=== PATIENT | female | born 1985 | race Caucasian/White ===

== ENCOUNTER 2019-03-05 00:59 | Emergency (ER) | payer OTHER, SELFPAY ==
--- NOTE | 2019-03-05 01:03 | ED_ITS ---
HPI - Chest Pain General Chief Complaint: Arrhythmia/Palpitations Stated Complaint: heart palpitations, pain left arm Time Seen by Provider: 03/05/19 01:03 Source: patient and family Mode of arrival: Ambulatory Limitations: no limitations History of Present Illness HPI narrative: 33-year-old female nonsmoker with history of palpitations presents with her daughter and a chief complaint of a sudden onset of palpitat ions and some discomfort in her left shoulder while watching a television show with her daughter earlier tonight. It was very brief in its presentation and she denies any actions which caused her symptoms to improve. She denies anything else such as dizziness, weakness or lightheadedness complaint: other Onset (ago): hour(s) Duration: now resolved Onset: during rest Severity: mild Quality: heaviness Pain radiation: none Relieving factors: nothing Exacerbating factors: nothing Treatments prior to arrival chest pain: none Related Data Allergies Allergy/AdvReac Type Severity Reaction Status Date / Time amoxicillin [AMOXICILLIN] Allergy Severe rash, Unverified 01/04/18 14:19 throat swelling Review of Systems Constitutional Constitutional: Denies chills, Denies fatigue, Denies fever(s), Denies frequent falls, Denies lethargy and Denies weakness Eyes Eyes: Denies change in vision, Denies eye discharge, Denies irritation and Denies loss of vision ENT Ears, Nose, Mouth, and Throat: Denies change in voice, Denies dizziness, Denies neck pain, Denies sore throat and Denies throat swelling Cardiovascular Cardiovascular: Reports chest pain, Denies irregular heart rhythm, Denies lightheadedness, Reports palpitations, Denies dyspnea, Denies dyspnea on exertion and Denies orthopnea Respiratory Respiratory: Denies cough, Denies dyspnea, Denies dyspnea on exertion and Denies wheezing Gastrointestinal Gastrointestinal: Denies abdominal pain, Denies change in bowel habits, Denies diarrhea, Denies nausea and Denies vomiting Genitourinary Genitourinary: Denies hematuria, Denies flank pain, Denies urinary incontinence and Denies urinary urgency Musculoskeletal Musculoskeletal: Denies back pain, Denies muscle weakness, Denies neck pain, Denies numbness and Denies tingling Integumentary/Breasts Skin/Breast: Denies pruritus, Denies erythema, Denies rash and Denies wounds Neurologic Neurologic: Denies behavioral changes, Denies confusion, Denies dizziness, Denies frequent falls, Denies loss of vision, Denies numbness, Denies tingling and Denies weakness Psychiatric Psychiatric: Denies anxiety, Denies behavioral changes, Denies confusion, Denies depression, Denies homicidal ideation and Denies suicidal ideation Endocrine Endocrine: Denies fatigue, Denies flushing and Reports palpitations Hematologic/Lymphatic Hematologic/Lymphatic: Denies easy bruising Allergic/Immunologic Allergic/Immunologic: Denies urticaria, Denies throat swelling and Denies wheezing Patient History Family History Father Age: 60 Hypertension Hyperlipidemia Mother Age: 57 Uterine cancer Sister Age: 32 Hyperlipidemia Social History Smoking Status: Never smoker Exam Narrative Exam Narrative: GENERAL: [33] year old patient appears stated age. Well- nourished, well-developed patient, in mild distress. HEAD: Atraumatic. Normocephalic. EYES: Pupils equal round and reactive. Extraocular motions intact. No scleral i cterus. No injection or drainage. ENT: Nose without bleeding, purulent drainage. Throat without erythema, tonsillar hypertrophy or exudate. Airway patent. NECK: Trachea midline. Non tender CARDIOVASCULAR: Regular rate and rhythm without murmurs, gallops, or rubs. RESPIRATORY: Clear to auscultation. Breath sounds equal bilaterally. No wheezes, rales, or rhonchi. GASTROINTESTINAL: Abdomen soft, non-tender, nondistended. EXTREMITIES: No edema or joint tenderness. BACK: Nontender without deformity or crepitance. No flank tenderness. NEURO: AOx3. SKIN: No rash or erythema of visible areas Initial Vital Signs Initial Vital Signs: Vital Signs Temperature 98.1 F 03/05/19 01:09 Pulse Rate 73 03/05/19 01:09 Respiratory Rate 16 03/05/19 01:09 Blood Pressure 141/86 H 03/05/19 01:09 Pulse Oximetry 100 03/05/19 01:09 Scores HEART Score Heart Score history: Slightly Suspicious Heart Score EKG: Normal Heart Score Age: < 45 years old Heart Score risk factors: No known risk factors Heart Score troponin: < or = to normal limit Heart Score Total: 0 Course Orders Ordered: ED Orders 03/05/19 EKG-12 Lead Stat 03/05/19 01:25 Basic Metabolic Panel Stat Complete Blood Count AUTO DIFF Stat Magnesium Stat Troponin & CK Cardiac Panel Stat Vital Signs Vital signs: Vital Signs - 8 hr 03/05/19 01:09 03/05/19 02:41 Temperature 98.1 F Pulse Rate 73 61 Respiratory Rate 16 15 Blood Pressure 141/86 H 103/72 Pulse Oximetry 100 98 MDM - Chest Pain Lab Data Result diagrams: 03/05/19 01:25 03/05/19 01:25 Labs: Lab Results 03/05/19 03/05/19 Range/Units 01:25 01:25 WBC 8.6 (4.5-11.0) X10^3/uL RBC 3.77 L (4.0-5.2) X10^6/uL Hgb 12.0 (12.0-16.0) g/dL Hct 34.5 L (36-46) % MCV 91.6 (80-100) fL MCH 31.7 (26-34) PG MCHC 34.7 (30-36) % RDW 13.9 (11.6-14.8) % Plt Count 303 (150-400) X10^3/uL Neut % (Auto) 47.8 L (50-75) % Lymph % (Auto) 36.8 (25-40) % [place] % (Auto) 9.5 (3-14) % Eos % (Auto) 5.3 H (2-4) % Baso % (Auto) 0.6 (0-2) % Neut # (Auto) 4100 (0010-0356) /uL Lymph # (Auto) 3200 (9450-0463) /uL [place] # (Auto) 800 (0-900) /uL Eos # (Auto) 500 H (0-450) /uL Baso # (Auto) 100 (0-100) /uL Sodium 138 (137-145) mmol/L Potassium 3.8 (3.4-5.1) mmol/L Chloride 103 (98-107) mmol/L Carbon Dioxide 28 (22-32) mmol/L BUN 16 (7-17) mg/dL Creatinine 0.80 (0.52-1.04) mg/dL Estimated GFR > 60.0 (>60) mL/min BUN/Creatinine Ratio 20.0 (6-22) Glucose 99 (70-100) mg/dL Calcium 9.3 (8.4-10.2) mg/dL Magnesium 2.0 (1.6-2.3) mg/dL Total Creatine Kinase 56 (30-135) U/L CK-MB (CK-2) TNP CK-MB (CK-2) Rel Index TNP Troponin I < 0.012 (0.01-0.034) ng/mL MDM Narrative Medical decision making narrative: Multiple causes of chest pain considered including MD, PE, pneumothorax, pneumonia, aortic dissection, and pleurisy. Patient reports no radiation, no diaphoresis, no provocation with exertion, and no vomiting Patient's symptoms improved or duration of stay with above-stated therapies. Findings and discharge diagnosis discussed with patient/family followed by verbalization of understanding Return precautions discussed with patient/family whom verbalize understanding. Discharge Plan Departure Patient Disposition: Home Clinical Impression: Heart palpitations Discharge Date/Time: 03/05/19 02:43 Instructions: DI for Palpitations
[2019-03-05 01:09] VITALS: BP 141/86; PULSE 73; RESP 16; TEMP 36.7; O2SAT 100; BMI 24.7
[2019-03-05 01:32] LABS: Add Manual Diff / Slide Review NO; Basophils Absolute Auto 100 /uL (0-100); Basophils Percent Auto 0.6 % (0-2); Eosinophils Absolute Auto 500 /uL (0-450); Eosinophils Percent Auto 5.3 % (2-4); Hematocrit 34.5 % (36-46); Lymphocytes Absolute Auto 3200 /uL (1100-4500); Lymphocytes Percent Auto 36.8 % (25-40); Mean Corpuscular HGB Conc 34.7 % (30-36); Mean Corpuscular Hemoglobin 31.7 PG (26-34); Mean Corpuscular Volume 91.6 fL (80-100); Monocytes Absolute Auto 800 /uL (0-900); Monocytes Percent Auto 9.5 % (3-14); Neutrophils Absolute Auto 4100 /uL (1500-7000); Neutrophils Percent Auto 47.8 % (50-75); Platelet Count 303 X10^3/uL (150-400); Red Blood Cell Count 3.77 X10^6/uL (4.0-5.2); Red Cell Distribution Width 13.9 % (11.6-14.8); White Blood Cell Count 8.6 X10^3/uL (4.5-11.0)
[2019-03-05 01:42] LABS: Blood Urea Nitrogen 16 mg/dL (7-17); Calcium 9.3 mg/dL (8.4-10.2); Carbon Dioxide 28 mmol/L (22-32); Chloride 103 mmol/L (98-107); Creatine Kinase 56 U/L (30-135); Estimated Glomerular Filt Rate > 60.0 mL/min (>60); Glucose 99 mg/dL (70-100); HEMOLYSIS < 15 (0-50); Potassium 3.8 mmol/L (3.4-5.1); Sodium 138 mmol/L (137-145)
[2019-03-05 01:53] LABS: Troponin I < 0.012 ng/mL (0.01-0.034)
[2019-03-05 02:41] VITALS: BP 103/72; PULSE 61; RESP 15; O2SAT 98
== END 2019-03-05 02:43 | disposition home or self-care (01) ==
LOC: ED 02:22
PROVIDERS: Emergency Provider Emergency Medicine; Family Provider Family Medicine
DX: R00.2 Palpitations (principal); M25.512 Pain in left shoulder
CPT/HCPCS: 36415; 80048; 82550; 83735; 84484; 85025; 93005; 99282; 99283

== ENCOUNTER → 2019-03-21 07:26 | Outpatient (CLI) | payer OTHER, SELFPAY | PROVIDERS: Family Provider Family Medicine; Visit Provider Nurse Practitioner | DX: R00.2 Palpitations (principal) | CPT/HCPCS: 0296T ==

== ENCOUNTER 2019-11-11 10:10 | Emergency (ER) | payer OTHER, SELFPAY ==
[2019-11-11 10:22] VITALS: BP 138/83; PULSE 67; RESP 18; TEMP 37.1; O2SAT 100; BMI 27.1
--- NOTE | 2019-11-11 11:26 | ED.DENTAL ---
HPI - Dental/Oral <Mau Phillip-Francis [facility] - Last Filed: 11/11/19 14:04> General Chief complaint: Dental/Oral Stated complaint: Abscessed tooth causing severe pain Time Seen by Provider: 11/11/19 11:08 Source: patient Mode of arrival: Family Vehicle Limitations: no limitations History of Present Illness HPI Narrative: This is a 33 year female, nonsmoker, who presents to ED with significant other with chief complain of left lower wisdom tooth pain which started 2 nights ago. Patient has started taking clindamycin 150 mg 4 times a day yesterday afternoon. She had taken ibuprofen 200 mg most of the time every 4 hours yesterday, used Orajel, [place] 1 tab 3 times and Tylenol 1 g twice over 24 hour period. Patient states she had left over [place] which she does not have any more. Patient reports difficulty with eating and drinking due to pain. Pain increases with opening her mouth and chewing. Patient denies fever, chills. She reports pain around left-sided cervical lymph nodes. Patient had spoke with her dentist and is waiting for tomorrow's appointment. Patient is here since pain is not well managed and worried if it gets worse tonight. Related Data Previous Rx's Medication Instructions Recorded hydrocodone-acetaminophen [[place]] 1 tab PO Q8H PRN #7 tab 11/11/19 Allergies Allergy/AdvReac Type Severity Reaction Status Date / Time amoxicillin [AMOXICILLIN] Allergy Severe rash, Unverified 03/15/19 11:04 throat swelling Influenza Virus Vaccines Allergy Severe diffuse Verified 03/27/19 10:23 skin rash, difficulty breathing. heavy metal Allergy Severe Diffuse Uncoded 03/27/19 10:24 rash, breathing difficulties Review of Systems <Mau SergoFrancis [facility] - Last Filed: 11/11/19 14:04> Review of Systems Narrative: General: Denies fever, chills, fatigue, malaise, sweats. HEENT: See HPI Respiratory: Denies dyspnea, cough, wheezing, hemoptysis, sputum. Cardiovascular: Denies chest pain, palpitations, orthopnea, edema. Gastrointestinal: Denies nausea, vomiting, abdominal pain, diarrhea, constipation, melena. : Denies dysuria, frequency, incontinence, hematuria, urinary retention. Musculoskeletal: Denies weakness, joint pain or bony pain. Skin: Denies rash, skin lesions, or other. Neurologic: Denies weakness, headache, numbness, change in speech, confusion, seizures, incoordination. Psychiatric: No concerning psychosocial issues. 12-point review of systems is negative except for those stated above. Patient History <ZOË Scherer - Last Filed: 11/11/19 14:04> Medical History Abnormal Pap smear of cervix (Inactive ~2006) Allergic rhinitis (Acute) Anemia (Chronic ~2012) Anxiety (Acute) Depression (Acute) Human papilloma virus (Inactive ~2006) Painful menstrual periods (Chronic) Palpitations (Acute) Rosacea (Chronic) Skin rash (Chronic) UTI (urinary tract infection) (Chronic ~2006) Weight gain, abnormal (Acute) Family History Father Age: 61 Hypertension Hyperlipidemia Mother Uterine cancer Cancer Diabetes mellitus Sister Age: 33 Hyperlipidemia Social History Smoking Status: Never smoker Smoking Status: Never smoker alcohol intake frequency: 0-2 drinks per day Substance Use Type: does not use Exam <ZOË Scherer - Last Filed: 11/11/19 14:04> Narrative Exam Narrative: General appearance: well developed, well nourished, in moderate distress in tears due to pain. Head: normocephalic, atraumatic, no scalp lesions, non-tender. ENT: Hearing grossly intact. Nose without bleeding, purulent discharge, septal hematoma or deviation. Facial sinuses nontender to palpate. Mucous membrane moist, no mucosal lesion. Throat without erythema, tonsillar hypertrophy or exudate. Uvula in midline, airway patent. Neck/Thyroid: neck supple, full range of motion, no visible masses or meningeal signs. No JVD, non-tender. Tender to palpate in left anterior cervical lymph nodes. Skin: no suspicious rashes, lesions over visible areas. Warm and dry and appropriate color for ethnicity. Heart: no clubbing, no cyanosis, no edema. S1 and S2 normal. RRR w/o murmurs, clicks, or bruits. Lungs: Breathing even and unlabored. No stridor. No accessory muscles used. Able to speak in full sentences. Chest: normal shape and expansion. Abdomen: non-obese, non-distended. Neurologic: alert and oriented. Cognitive exam, [employer] and PNS grossly intact on informal exam. Psych: good eye contact, tearful. Initial Vital Signs Initial Vital Signs: Vital Signs Temperature 98.7 F 11/11/19 10:22 Pulse Rate 67 11/11/19 10:22 Respiratory Rate 18 11/11/19 10:22 Blood Pressure 138/83 11/11/19 10:22 Pulse Oximetry 100 11/11/19 10:22 <Waylon Marquez MD - Last Filed: 11/12/19 07:47> Initial Vital Signs Initial Vital Signs: Vital Signs Temperature 98.7 F 11/11/19 10:22 Pulse Rate 67 11/11/19 10:22 Respiratory Rate 18 11/11/19 10:22 Blood Pressure 138/83 11/11/19 10:22 Pulse Oximetry 100 11/11/19 10:22 Scores <ZOË Scherer - Last Filed: 11/11/19 14:04> GCS [place] coma scale eye opening: Spontaneous Ama coma scale verbal response: Orientated Ama coma scale motor response: Obey commands Ama coma scale total score: 15 Course <ZOË Scherer - Last Filed: 11/11/19 14:04> Vital Signs Vital signs: Vital Signs - 8 hr 11/11/19 10:22 11/11/19 11:40 Temperature 98.7 F Pulse Rate 67 76 Respiratory Rate 18 16 Blood Pressure 138/83 Pulse Oximetry 100 100 <Waylon Marquez MD - Last Filed: 11/12/19 07:47> Vital Signs Vital signs: Vital Signs - 8 hr 11/11/19 10:22 11/11/19 11:40 Temperature 98.7 F Pulse Rate 67 76 Respiratory Rate 18 16 Blood Pressure 138/83 Pulse Oximetry 100 100 MDM - Dental/Oral <ZOË Scherer - Last Filed: 11/11/19 14:04> Differential Diagnosis Differential diagnosis: Likely toothache, dental abscess and other (Impacted wisdom to in left lower mouth) Medical Records Attestation: I reviewed the patient's medical records. Lab Data Attestation: I reviewed the patient's lab results. [facility] Narrative Medical decision making narrative: This is a 33 year female who presents to ED with left lower molar pain for last 2 days. Patient has an appointment with her dentist tomorrow and had started on antibiotic medication clindamycin 150 mg q.i.d. and has been taking occasional Tylenol, her old prescription [place], subtherapeutic dose of Motrin during last 24 hours. Patient does not have fever chills. No obvious signs of dental infection at this time except mildly tender to palpate in left anterior cervical lymph nodes. Patient discharged to home with [id number] Tylenol and Motrin. We reviewed appropriate dose and frequency for these medications for pain management. Patient provided with cool pack to use on affected site for pain. Small dose of [place] has been prescribed for only severe pain with narcotic pain medications and precautions. Return precautions were discussed with patient and patient verbalized understanding and in agreement with treatment plan. Discharge Plan Departure Patient Disposition: Home Clinical Impression: Dental infection Discharge Date/Time: 11/11/19 11:42 Instructions: DI for Dental Pain Activity Restrictions/Additional Instructions: You have been diagnosed with [dental pain possibly due to dental infection.]. What to do: *Take your medications as directed. Please take [id number] ibuprofen/Motrin 400-600 mg as needed every 8 hours as needed with food. Tylenol 650-1000 mg every 6 hours as needed for pain up to 4000 mg in 24 hour period. You can use [place] 1 tab up to 3 times a day as needed for severe pain. Please take precautions for narcotic medication, [place]. This medication can cause sleepy and drowsiness and constipation. Please do not drive, drink alcohol, or operate heavy equipments while your taking [place]. [place] has been transmitted to [email or web address] in [place]. Also you can use cool pack on affected site as needed. *Follow up with your dentist tomorrow as scheduled foreign further evaluation and treatment. Let them know you were seen in the ED and that we asked you to be seen in follow up. *Return to ED if you have any new, worsening, or concerning symptoms, such as [chest pain, breathing difficulty, unable to tolerate fluids, high fever, worsening pain or any acute concerns]. Prescriptions: New hydrocodone-acetaminophen [[place]] 5-325 mg tablet 1 tab PO Q8H PRN (Reason: pain) Qty: 7 RF: 0 Referrals: Charline Manjarrez ARNP [Primary Care Provider] -
[2019-11-11 11:40] VITALS: PULSE 76; RESP 16; O2SAT 100
== END 2019-11-11 11:42 | disposition home or self-care (01) ==
PROVIDERS: Emergency Provider Nurse Practitioner Family; Family Provider Family Medicine; PCP Nurse Practitioner
DX: K04.7 Periapical abscess without sinus (principal)
CPT/HCPCS: 99281

== ENCOUNTER 2020-03-06 08:24 | Emergency (ER) | payer OTHER, SELFPAY ==
[2020-03-06 08:25] VITALS: BP 134/65; PULSE 71; RESP 18; TEMP 36.3; O2SAT 100; BMI 26.5
[2020-03-06 08:29] VITALS: BP 134/69; PULSE 61; RESP 14; O2SAT 99
--- NOTE | 2020-03-06 08:32 | DI.RAD.S_ITS ---
PROCEDURE: XR CHEST 1V INDICATIONS: chest pain TECHNIQUE: One view of the chest was acquired. COMPARISON: None. FINDINGS: Surgical changes and devices: None. Lungs and pleura: Lungs are clear. No pleural effusions or pneumothorax. Mediastinum: Mediastinal contours appear normal. Heart size is normal. Bones and chest wall: No suspicious bony lesions. Overlying soft tissues appear unremarkable. IMPRESSION: No evidence acute pulmonary process. Dictated by: Tyson Hernandez M.D. on 03/06/2020 at 9:10 Approved by: Tyson Hernandez M.D. on 03/06/2020 at 9:10
[2020-03-06 08:48] LABS: Add Manual Diff / Slide Review NO; Basophils Absolute Auto 0 /uL (0-100); Basophils Percent Auto 0.5 % (0-2); Eosinophils Absolute Auto 300 /uL (0-450); Eosinophils Percent Auto 3.4 % (2-4); Hematocrit 37.2 % (36-46); Hemoglobin 12.7 g/dL (12.0-16.0); Lymphocytes Absolute Auto 2300 /uL (1100-4500); Lymphocytes Percent Auto 29.4 % (25-40); Mean Corpuscular Hemoglobin 31.5 PG (26-34); Mean Corpuscular Volume 92.6 fL (80-100); Monocytes Absolute Auto 800 /uL (0-900); Monocytes Percent Auto 9.5 % (3-14); Neutrophils Absolute Auto 4500 /uL (1500-7000); Neutrophils Percent Auto 57.2 % (50-75); Platelet Count 290 X10^3/uL (150-400); Red Blood Cell Count 4.01 X10^6/uL (4.0-5.2); Red Cell Distribution Width 13.1 % (11.6-14.8); White Blood Cell Count 7.9 X10^3/uL (4.5-11.0)
--- NOTE | 2020-03-06 08:50 | DI.US.S_ITS ---
PROCEDURE: US ABDOMEN COMPLETE INDICATIONS: PULSATING ABDOMINAL PAIN, CHANGING LOCATION TECHNIQUE: Real-time scanning was performed of the abdominal and retroperitoneal organs, with image documentation. COMPARISON: [facility], US, ABDOMEN COMPLETE, 06/11/2015, 18:38. FINDINGS: Liver: Liver is normal in size and homogeneous in echotexture. Gallbladder: There is no gallstone. No gallbladder wall thickening or pericholecystic fluid. No sonographic Bell sign. Biliary ducts: Intrahepatic bile ducts are non-dilated. Extrahepatic bile duct caliber measures 4 mm. Normal is 6-7 mm or less in diameter, or 10 mm or less post-cholecystectomy. Pancreas: Visualized portions of the pancreas are sonographically normal. Spleen: Spleen is normal in size and homogeneous in echotexture. Kidneys: Kidneys are normal in size and echotexture. Right kidney measures 11 cm long; left kidney measures 10.1 cm long. No hydronephrosis or nephrolithiasis. No solid masses. Aorta: Visualized aorta is normal in caliber at less than 3 cm. Iliacs: Proximal common iliac arteries are normal in caliber at less than 2.5 cm. IVC: Intrahepatic inferior vena cava is patent. Miscellaneous: No free abdominal fluid. IMPRESSION: 1. No gallstone. No sonographic evidence of acute cholecystitis. 2. No biliary ductal dilatation. 3. Rest of the exam is unremarkable. Dictated by: Quinton Chanel M.D. on 03/06/2020 at 8:33 Approved by: Quinton Chanel M.D. on 03/06/2020 at 8:34
--- NOTE | 2020-03-06 08:53 | ED_ITS ---
HPI - Chest Pain General Chief Complaint: Chest Pain Stated Complaint: CHEST PAIN AND STOMACH PAIN Time Seen by Provider: 03/06/20 08:36 Source: patient Mode of arrival: Ambulatory Limitations: no limitations History of Present Illness HPI narrative: This is a 34-year-old female who comes to the emergency department with complaint of fluttering and a pulsating feeling in her stomach which she noticed yesterday and has continued. When she is distracted she does not notice it as much. She also developed some pain in her upper chest today. Patient states no fevers, no cough cold or congestion type symptoms. She describes the abdominal symptoms more as a discomfort when asked if she has pain and hesitate to call it pain. Patient denies any headaches, no shortness of breath or wheezing. No nausea, no vomiting. She normally has constipation. She has not had any new changes to her bowel movements. She noted her your urine has been slightly more orange recently and she has increased her fluid intake. Past medical history includes cervical dysplasia, she is following with a specialist in [place]. She is not on any other medications or have any other medical issues. No prior surgeries other than cervical biopsies. She states she has had significant stress lately and is concerned about her follow-up regarding her cervical dysplasia. No allergies to medications. No tobacco, alcohol or illicit. She does take an extensive list of supplements including 60412 units of vitamin-D, multivitamin, zinc, a HCC, DIM, methyl aided folate, tumor, vitamin-C, probiotic, CO2 10 and a herbal supplement which she just started. Patient's family history includes her mother passing away in her 50s from uterine cancer and she becomes tearful when discussing this. She denies any cardiac, pulmonary, embolic her aneurysm history. She is accompanied by her daughter today. Related Data Previous Rx's Medication Instructions Recorded hydrocodone-acetaminophen [Lindsay] 1 tab PO Q8H PRN #7 tab 11/11/19 Allergies Allergy/AdvReac Type Severity Reaction Status Date / Time amoxicillin [AMOXICILLIN] Allergy Severe rash, Unverified 03/15/19 11:04 throat swelling Influenza Virus Vaccines Allergy Severe diffuse Verified 03/27/19 10:23 skin rash, difficulty breathing. heavy metal Allergy Severe Diffuse Uncoded 03/27/19 10:24 rash, breathing difficulties Review of Systems Review of Systems ROS Unobtainable: All systems reviewed & are unremarkable except as noted in HPI and below Patient History Medical History Abnormal Pap smear of cervix (Inactive ~2006) Allergic rhinitis (Acute) Anemia (Chronic ~2012) Anxiety (Acute) Depression (Acute) Human papilloma virus (Inactive ~2006) Painful menstrual periods (Chronic) Palpitations (Acute) Rosacea (Chronic) Skin rash (Chronic) UTI (urinary tract infection) (Chronic ~2006) Weight gain, abnormal (Acute) Family History Father Age: 61 Hypertension Hyperlipidemia Mother Uterine cancer Cancer Diabetes mellitus Sister Age: 33 Hyperlipidemia Social History Smoking Status: Never smoker Smoking Status: Never smoker alcohol intake frequency: 0-2 drinks per day Substance Use Type: does not use Exam Narrative Exam Narrative: GENERAL: Alert and oriented x three, well-nourished, well- appearing female in mild distress. Patient became tearful during HPI. HEENT: Head normocephalic, atraumatic, EOMI, pupils reactive, face symmetric, moist mucous membranes NECK: Supple, full range of motion CARDIOVASCULAR: Regular rate and rhythm without murmurs, rubs or gallops. RESPIRATORY: Breath sounds equal bilaterally, no wheezes rales or rhonchi. ABDOMEN: Soft, nontender. Normoactive bowel sounds all 4 quadrants. No guarding or rebound, rigidity, no mass, no bruits, no pulsatile mass. : No CVA tenderness EXTREMITIES: Normal range of motion, no clubbing or edema. Neurovascularly intact NEUROLOGICAL: Cranial nerves II through XII grossly intact. Moving all extremities SKIN: Warm, dry, no petechiae, no rashes or lesions. Initial Vital Signs Initial Vital Signs: Vital Signs Temperature 97.3 F L 03/06/20 08:25 Pulse Rate 71 03/06/20 08:25 Respiratory Rate 18 03/06/20 08:25 Blood Pressure 134/65 03/06/20 08:25 Pulse Oximetry 100 03/06/20 08:25 Scores HEART Score Heart Score history: Slightly Suspicious Heart Score EKG: Normal Heart Score Age: < 45 years old Heart Score risk factors: No known risk factors Heart Score troponin: < or = to normal limit Heart Score Total: 0 Course Orders Ordered: ED Orders 03/06/20 08:32 XR chest 1V Stat 03/06/20 08:35 EKG-12 Lead Stat 03/06/20 08:40 Complete Blood Count AUTO DIFF Stat Comprehensive Metabolic Panel Stat Lipase Stat Partial Thromboplastin Time Stat Prothrombin Time INR Stat Thyroid Stimulating Hormone Stat Troponin & CK Cardiac Panel Stat 03/06/20 08:50 US abdomen complete Stat Vital Signs Vital signs: Vital Signs - 8 hr 03/06/20 08:25 Temperature 97.3 F L Pulse Rate 71 Respiratory Rate 18 Blood Pressure 134/65 Pulse Oximetry 100 MDM - Chest Pain Lab Data Attestation: I reviewed the patient's lab results. Result diagrams: 03/06/20 08:40 03/06/20 08:40 Labs: Lab Results 03/06/20 03/06/20 03/06/20 Range/Units 08:40 08:40 08:40 WBC 7.9 (4.5-11.0) X10^3/uL RBC 4.01 (4.0-5.2) X10^6/uL Hgb 12.7 (12.0-16.0) g/dL Hct 37.2 (36-46) % MCV 92.6 (80-100) fL MCH 31.5 (26-34) PG MCHC 34.0 (30-36) % RDW 13.1 (11.6-14.8) % Plt Count 290 (150-400) X10^3/uL Neut % (Auto) 57.2 (50-75) % Lymph % (Auto) 29.4 (25-40) % Citrus % (Auto) 9.5 (3-14) % Eos % (Auto) 3.4 (2-4) % Baso % (Auto) 0.5 (0-2) % Neut # (Auto) 4500 (4535-2211) /uL Lymph # (Auto) 2300 (3796-1692) /uL Citrus # (Auto) 800 (0-900) /uL Eos # (Auto) 300 (0-450) /uL Baso # (Auto) 0 (0-100) /uL PT 11.1 (10.1-12.7) SECONDS INR 1.0 (0.9-1.3) APTT 29 (26.4-36.2) SECONDS Sodium 137 (137-145) mmol/L Potassium 4.0 (3.4-5.1) mmol/L Chloride 101 (98-107) mmol/L Carbon Dioxide 31 (22-32) mmol/L BUN 14 (7-17) mg/dL Creatinine 0.55 (0.52-1.04) mg/dL Estimated GFR > 60.0 (>60) mL/min BUN/Creatinine Ratio 25.5 H (6-22) Glucose 80 (70-100) mg/dL Calcium 9.3 (8.4-10.2) mg/dL Total Bilirubin 0.3 (0.2-1.3) mg/dL AST 29 (14-36) IU/L ALT 29 (<35) IU/L Alkaline Phosphatase 45 (38-126) U/L Total Creatine Kinase 49 (30-135) U/L CK-MB (CK-2) TNP CK-MB (CK-2) Rel Index TNP Troponin I < 0.012 (0.01-0.034) ng/mL Total Protein 7.6 (6.3-8.2) g/dL Albumin 4.7 (3.5-5.0) g/dL Globulin 2.9 (1.7-4.1) g/dL Albumin/Globulin Ratio 1.6 (1.0-2.8) Lipase 55 (23-300) U/L TSH (0.47-4.68) uIU/mL 03/06/20 Range/Units 08:40 WBC (4.5-11.0) X10^3/uL RBC (4.0-5.2) X10^6/uL Hgb (12.0-16.0) g/dL Hct (36-46) % MCV (80-100) fL MCH (26-34) PG MCHC (30-36) % RDW (11.6-14.8) % Plt Count (150-400) X10^3/uL Neut % (Auto) (50-75) % Lymph % (Auto) (25-40) % Citrus % (Auto) (3-14) % Eos % (Auto) (2-4) % Baso % (Auto) (0-2) % Neut # (Auto) (3541-8026) /uL Lymph # (Auto) (1476-4167) /uL Citrus # (Auto) (0-900) /uL Eos # (Auto) (0-450) /uL Baso # (Auto) (0-100) /uL PT (10.1-12.7) SECONDS INR (0.9-1.3) APTT (26.4-36.2) SECONDS Sodium (137-145) mmol/L Potassium (3.4-5.1) mmol/L Chloride (98-107) mmol/L Carbon Dioxide (22-32) mmol/L BUN (7-17) mg/dL Creatinine (0.52-1.04) mg/dL Estimated GFR (>60) mL/min BUN/Creatinine Ratio (6-22) Glucose (70-100) mg/dL Calcium (8.4-10.2) mg/dL Total Bilirubin (0.2-1.3) mg/dL AST (14-36) IU/L ALT (<35) IU/L Alkaline Phosphatase (38-126) U/L Total Creatine Kinase (30-135) U/L CK-MB (CK-2) CK-MB (CK-2) Rel Index Troponin I (0.01-0.034) ng/mL Total Protein (6.3-8.2) g/dL Albumin (3.5-5.0) g/dL Globulin (1.7-4.1) g/dL Albumin/Globulin Ratio (1.0-2.8) Lipase (23-300) U/L TSH 0.850 (0.47-4.68) uIU/mL Point of Care Testing Test Results Negative Urine Dip Bedside Urine Glucose Negative Bedside Urine Bilirubin - Negative Bedside Urine Ketone - Negative Urine Specific [place] 1.005 Bedside Urine Occult Blood - Negative Bedside Urine pH 7.5 Bedside Urine Protein - Negative Bedside Urine Urobilinogen - Negative Bedside Urine Nitrite - Negative Bedside Urine Leukocytes - Negative Esterase Imaging Data Chest x-ray: Radiologist's Impression: [address] [place] [id number] XRay Report Signed Patient: Tatyana Almeida LMR#: [id number] : 1985Acct:[id number] Age/Sex: 34 / FDate of Service: 03/06/20 Loc: ED Accession Number: [id number] Procedure: XR chest 1V Ordering Provider: Rosy Fernandez D.O. PROCEDURE: XR CHEST 1V INDICATIONS: chest pain TECHNIQUE: One view of the chest was acquired. COMPARISON: None. FINDINGS: Surgical changes and devices: None. Lungs and pleura: Lungs are clear. No pleural effusions or pneumothorax. Mediastinum: Mediastinal contours appear normal. Heart size is normal. Bones and chest wall: No suspicious bony lesions. Overlying soft tissues appear unremarkable. IMPRESSION: No evidence acute pulmonary process. Dictated by: Tyson Hernandez M.D. on 03/06/2020 at 9:10 Approved by: Tyson Hernandez M.D. on 03/06/2020 at 9:10 US - abdomen: Radiologist's Impression: [place] [id number] Ultrasound Report Signed Patient: Tatyana Almeida LMR#: [id number] : 1985Acct:[id number] Age/Sex: 34 / FDate of Service: 03/06/20 Loc: ED Accession Number: [id number] Procedure: US abdomen complete Ordering Provider: Rosy Fernandez D.O. PROCEDURE: US ABDOMEN COMPLETE INDICATIONS: PULSATING ABDOMINAL PAIN, CHANGING LOCATION TECHNIQUE: Real-time scanning was performed of the abdominal and retroperitoneal organs, with image documentation. COMPARISON: [facility], , ABDOMEN COMPLETE, 06/11/2015, 18:38. FINDINGS: Liver: Liver is normal in size and homogeneous in echotexture. Gallbladder: There is no gallstone. No gallbladder wall thickening or per icholecystic fluid. No sonographic Bell sign. Biliary ducts: Intrahepatic bile ducts are non-dilated. Extrahepatic bile duct caliber measures 4 mm. Normal is 6-7 mm or less in diameter, or 10 mm or less post-cholecystectomy. Pancreas: Visualized portions of the pancreas are sonographically normal. Spleen: Spleen is normal in size and homogeneous in echotexture. Kidneys: Kidneys are normal in size and echotexture. Right kidney measures 11 cm long; left kidney measures 10.1 cm long. No hydronephrosis or nephrolithiasis. No solid masses. Aorta: Visualized aorta is normal in caliber at less than 3 cm. Iliacs: Proximal common iliac arteries are normal in caliber at less than 2.5 cm. IVC: Intrahepatic inferior vena cava is patent. Miscellaneous: No free abdominal fluid. IMPRESSION: 1. No gallstone. No sonographic evidence of acute cholecystitis. 2. No biliary ductal dilatation. 3. Rest of the exam is unremarkable. Dictated by: Quinton Chanel M.D. on 03/06/2020 at 8:33 Approved by: Quinton Chanel M.D. on 03/06/2020 at 8:34 ECG Data Attestation: I personally reviewed and interpreted this ECG as follows: Prior ECG tracings: not available for review Interpretation: Sinus rhythm with a rate of 78, CT 153, QRS of 93 QTC of 416. No ST changes appreciated. MDM Narrative Medical decision making narrative: Discussed with patient's suspicion for car diac cause is low, her pulsatile sensation over her abdomen and by her description does sound similar to aortic pulsations and patient does not have a very large body habitus. Plan for labs, urine evaluation and ultrasound to evaluate for abdominal organs as well as aorta. Patient is also quite stressed about her cervical dysplasia although she has been following regularly and containing appropriate medical care, she does have a family history of uterine cancer with her mother which seems to be exacerbating her current fevers understandably. She is also on a significant number of supplements and we discussed that her vitamin D dosage should be decreased and I would recommend decreasing the total number of supplements at this time as she could be having some interactions which are not making her feel less well. Labs, US and CXR show no major changes. Discharge Plan Departure Patient Disposition: Home Clinical Impression: Abdominal pain Discharge Date/Time: 03/06/20 09:59 Instructions: DI for Abdominal Pain-Adult Activity Restrictions/Additional Instructions: Follow-up with your physician at your scheduled appointment next week. I would decrease your number of supplements, I would also recommend decreasing or stopping your Vitamin D, 10,000IU is too much. Your physician can check your vitamin D level if you are concerned you are not getting adequate amounts. Return to the emergency department if your having fevers, rapidly worsening abdominal pain, ripping or tearing sensation, passing out, new shortness of breath, persistent vomiting, black or bloody stools or other new or concerning symptoms Prescriptions: No Action hydrocodone-acetaminophen [Lindsay] 5-325 mg tablet 1 tab PO Q8H PRN (Reason: pain) Qty: 7 RF: 0 Referrals: Charline Manjarrez ARNP [Primary Care Provider] -
[2020-03-06 09:00] LABS: Prothrombin Time 11.1 SECONDS (10.1-12.7)
[2020-03-06 09:02] LABS: Alanine Aminotransferase 29 IU/L (<35); Albumin 4.7 g/dL (3.5-5.0); Albumin Globulin Ratio 1.6 (1.0-2.8); Alkaline Phosphatase 45 U/L (38-126); Aspartate Aminotransferase 29 IU/L (14-36); BUN Creatinine Ratio 25.5 (6-22); Bilirubin Total 0.3 mg/dL (0.2-1.3); Blood Urea Nitrogen 14 mg/dL (7-17); Calcium 9.3 mg/dL (8.4-10.2); Carbon Dioxide 31 mmol/L (22-32); Chloride 101 mmol/L (98-107); Creatine Kinase 49 U/L (30-135); Estimated Glomerular Filt Rate > 60.0 mL/min (>60); Globulin 2.9 g/dL (1.7-4.1); Glucose 80 mg/dL (70-100); HEMOLYSIS < 15 (0-50); Lipase 55 U/L (23-300); PTT Partial Thromboplastin Tim 29 SECONDS (26.4-36.2); Sodium 137 mmol/L (137-145); Total Protein 7.6 g/dL (6.3-8.2)
[2020-03-06 09:14] LABS: Troponin I < 0.012 ng/mL (0.01-0.034)
[2020-03-06 09:57] VITALS: BP 97/61; PULSE 72; RESP 16; O2SAT 98
== END 2020-03-06 09:59 | disposition home or self-care (01) ==
PROVIDERS: Emergency Provider Emergency Medicine; Family Provider Family Medicine; PCP Nurse Practitioner
DX: R10.9 Unspecified abdominal pain (principal); R07.9 Chest pain, unspecified
CPT/HCPCS: 36415; 71045; 76700; 80053; 81003; 81025; 82550; 83690; 84443; 84484; 85025; 85610; 85730; 93005; 99284

== ENCOUNTER 2020-10-05 22:02 | Emergency (ER) | payer OTHER, SELFPAY ==
[2020-10-05 22:08] VITALS: BP 112/81; PULSE 86; RESP 18; TEMP 37.2; O2SAT 99
--- NOTE | 2020-10-05 22:08 | DI.RAD.S_ITS ---
PROCEDURE: XR CHEST 1V INDICATIONS: SOB TECHNIQUE: One view of the chest was acquired. COMPARISON: [facility], CR, XR CHEST 1V, 03/06/2020, 8:48. FINDINGS: Surgical changes and devices: None. Lungs and pleura: No pleural effusions or pneumothorax. Mild patchy ground-glass opacity involving the left lung base suggestive of early pneumonia although technically nonspecific and could represent mild atelectasis/aspiration. Mediastinum: Mediastinal contours appear normal. Heart size is normal. Bones and chest wall: No suspicious bony lesions. Overlying soft tissues appear unremarkable. IMPRESSION: Possible early left pneumonia although technically nonspecific as above. If there is persistent clinical diagnostic uncertainty, continued surveillance with short interval radiographic followup after treatment is recommended. Findings concordant with preliminary study interpretation. Dictated by: French Block M.D. on 10/06/2020 at 8:28 Approved by: French Block M.D. on 10/06/2020 at 8:30
--- NOTE | 2020-10-05 22:23 | RT ---
Assessed pt at 221. Pt is here for SOB, chest pain. Pt is on RA, SpO2 96%, RR 18, BS clear t/o. Pt has hx of asthma but mostly exercise induced asthma when she was in high school. Pt has never smoked and doesn't use CPAP/BiPAP or O2 at home. Recommending O2 therapy as needed and will monitor pt.
[2020-10-05 22:34] LABS: COVID19 -Nasal RAPID POSITIVE (Negative)
--- NOTE | 2020-10-05 22:34 | ED.GENADULT ---
HPI - General Adult General Chief complaint: Shortness of Breath/Dyspnea Stated complaint: SOB/chest pain, covid Sx Time Seen by Provider: 10/05/20 22:07 Source: patient Mode of arrival: Ambulatory Limitations: no limitations History of Present Illness HPI narrative: Patient is a 34-year-old female who is here with her for evaluation of chest pain and shortness of breath and also symptoms that she thinks her consistent with COVID. She has had the symptoms for the past 10-12 days however today started getting some worsening shortness of breath and coughing. Also started with a headache. Patient's also had symptoms starting about the same time. Related Data Allergies Allergy/AdvReac Type Severity Reaction Status Date / Time amoxicillin [AMOXICILLIN] Allergy Severe rash, Unverified 05/13/20 11:22 throat swelling Influenza Virus Vaccines Allergy Severe diffuse Verified 05/13/20 11:22 skin rash, difficulty breathing. heavy metal Allergy Severe Diffuse Uncoded 05/13/20 11:22 rash, breathing difficulties Review of Systems Constitutional Constitutional: Reports headache(s) ENT Ears, Nose, Mouth, and Throat: Reports headache(s) Cardiovascular Cardiovascular: Reports chest pain and Reports dyspnea Respiratory Respiratory: Reports cough and Reports dyspnea Integumentary/Breasts Skin/Breast: Denies rash Neurologic Neurologic: Reports system reviewed and no additional complaints, except as documented and Reports headache(s) Hematologic/Lymphatic On Anticoagulants: No Allergic/Immunologic Allergic/Immunologic: Reports system reviewed and no additional complaints, except as documented Patient History Medical History Abnormal Pap smear of cervix (~2006) Allergic rhinitis Anemia (~2012) Anxiety Depression Human papilloma virus (~2006) Painful menstrual periods Palpitations Rosacea Skin rash UTI (urinary tract infection) (~2006) Weight gain, abnormal Family History Father Age: 62 Hypertension Hyperlipidemia Mother Uterine cancer Cancer Diabetes mellitus Sister Age: 34 Hyperlipidemia Social History Smoking Status: Never smoker Smoking Status: Never smoker alcohol intake frequency: 0-2 drinks per day Substance Use Type: does not use Exam Initial Vital Signs Initial Vital Signs: Vital Signs Temperature 99.0 F 10/05/20 22:08 Pulse Rate 86 10/05/20 22:08 Respiratory Rate 18 10/05/20 22:08 Blood Pressure 112/81 10/05/20 22:08 Pulse Oximetry 99 10/05/20 22:08 Const General: cooperative and comfortable Limitations: mental status not altered HENMT Head: normal to inspection and normocephalic Resp Effort & Inspection: normal respiratory effort Auscultation: clear to auscultation bilaterally Cardio Rate: regular rate Rhythm: regular rhythm GI Inspection: normal to inspection Skin Lesions: no lesions Rashes: no rashes Extrem General: normal to inspection and capillary refill normal Psych Appearance: grossly normal and well kempt Course Orders Ordered: ED Orders 10/05/20 22:07 Measure peak expiratory flow ONCE RT Consult Eval and Treat Now 10/05/20 22:08 XR chest 1V Stat EKG-12 Lead Stat 10/05/20 22:18 COVID19 -Nasal swab/Pre-Proc Stat Vital Signs Vital signs: Vital Signs - 8 hr 10/05/20 22:08 10/05/20 22:59 Temperature 99.0 F Pulse Rate 86 74 Respiratory Rate 18 18 Blood Pressure 112/81 103/64 Pulse Oximetry 99 99 Medical Decision Making Lab Data Lab results reviewed: Yes I reviewed the patient's lab results. Labs: Lab Results 10/05/20 Range/Units 22:18 SARS-CoV-2 (PCR) Positive H (Negative) Imaging Data Chest x-ray: Attestation: I personally reviewed and interpreted this imaging study as follows: My Impression: No acute findings ECG Data Attestation: I personally reviewed and interpreted this ECG as follows: Prior ECG tracings: not available for review Interpretation: Sinus rhythm Ventricular rate is 68 Normal axis Normal QRS Normal QTC No ST T wave changes MDM Narrative Medical decision making narrative: Patient's vital signs are unremarkable. She has a clear lung exam. She is afebrile. She is COVID positive which I suspect is the source of her symptoms. No indication for antibiotics. Low suspicion for bacterial pneumonia based on her clinical presentation. She was given current guidelines with regard to quarantine. She was given return precautions and follow-up instructions. She expressed understanding and agreement. Discharge Plan Departure Patient Disposition: Home Clinical Impression: COVID-19 Instructions: DI for COVID-19 (Suspected or Confirmed ) Activity Restrictions/Additional Instructions: You are to quarantine yourself for the next 10 days and until you have been symptom-free for 24 hours. The rest of your family needs to quarantine themselves as well. You can take Tylenol for any fevers. Return to the emergency department for any worsening breathing issues. Referrals: Charline Manjarrez ARNP [Primary Care Provider] -
[2020-10-05 22:59] VITALS: BP 103/64; PULSE 74; RESP 18; O2SAT 99
== END 2020-10-05 22:59 | disposition home or self-care (01) ==
PROVIDERS: Emergency Provider Emergency Medicine; Family Provider Family Medicine; PCP Nurse Practitioner
DX: U07.1 COVID-19 (principal); R06.02 Shortness of breath; R07.9 Chest pain, unspecified
CPT/HCPCS: 36415; 71045; 87635; 93005; 93010; 99283; 99284; C9803

== ENCOUNTER → 2020-11-25 09:59 | Outpatient (CLI) | payer OTHER, SELFPAY ==
--- NOTE | 2020-11-25 10:02 | DI.US.S_ITS ---
PROCEDURE: US PELVIC COMPLETE INDICATIONS: HEAVY IRREGULAR BLEEDING TECHNIQUE: Real-time scanning was performed of the pelvic organs, with image documentation. Additional endovaginal scanning was necessary due to incomplete visualization of the adnexal and endometrial structures by transabdominal scanning. COMPARISON: None. FINDINGS: Uterus: Uterus is normal in size at 4.8 x 5.9 x 9.6 cm. The endometrium measures 4.0 mm in combined thickness. Uterus is anteverted. Ovaries: Right ovary measures 2.5 x 2.0 x 2.4 cm and the left measures 3.4 x 2.4 x 1.7 cm. Other: No pathologic free abdominal or pelvic fluid. IMPRESSION: No lesion seen. Dictated by: Pilo Hopkins M.D. on 11/26/2020 at 15:14 Approved by: Pilo Hopkins M.D. on 11/26/2020 at 15:16
[2020-11-25 11:53] LABS: Add Manual Diff / Slide Review NO; Basophils Absolute Auto 100 /uL (0-100); Eosinophils Absolute Auto 200 /uL (0-450); Eosinophils Percent Auto 2.6 % (2-4); Hematocrit 39.4 % (36-46); Hemoglobin 13.1 g/dL (12.0-16.0); Lymphocytes Absolute Auto 2100 /uL (1100-4500); Lymphocytes Percent Auto 29.4 % (25-40); Mean Corpuscular HGB Conc 33.3 % (30-36); Mean Corpuscular Hemoglobin 30.5 PG (26-34); Mean Corpuscular Volume 91.7 fL (80-100); Monocytes Absolute Auto 600 /uL (0-900); Monocytes Percent Auto 9.1 % (3-14); Neutrophils Absolute Auto 4100 /uL (1500-7000); Neutrophils Percent Auto 57.9 % (50-75); Platelet Count 323 X10^3/uL (150-400); Red Cell Distribution Width 13.7 % (11.6-14.8)
[2020-11-25 12:09] LABS: Alanine Aminotransferase 16 IU/L (<35); Albumin 4.5 g/dL (3.5-5.0); Albumin Globulin Ratio 1.4 (1.0-2.8); Alkaline Phosphatase 40 U/L (38-126); Aspartate Aminotransferase 25 IU/L (14-36); BUN Creatinine Ratio 15.3 (6-22); Bilirubin Total 0.5 mg/dL (0.2-1.3); Blood Urea Nitrogen 9 mg/dL (7-17); Calcium 9.5 mg/dL (8.4-10.2); Carbon Dioxide 27 mmol/L (22-32); Chloride 101 mmol/L (98-107); Cholesterol 201 mg/dL (140-199); Estimated Glomerular Filt Rate > 60.0 mL/min (>60); Globulin 3.2 g/dL (1.7-4.1); Glucose 79 mg/dL (70-100); HDL Cholesterol 57 mg/dL (40-60); HEMOLYSIS < 15 (0-50); LDL Cholesterol Calculated 126 mg/dL (<100); Potassium 4.2 mmol/L (3.4-5.1); Sodium 137 mmol/L (137-145); Total Protein 7.7 g/dL (6.3-8.2); Triglycerides 89 mg/dL (35-150)
[2020-11-25 12:24] LABS: Free T3, Triiodothyronine Free 3.73 pg/mL (2.77-5.27); Free T4, Direct Thyroxine 1.13 ng/dL (0.78-2.19)
[2020-11-25 12:26] LABS: HCG Quantitative /Beta subunit < 2.4 mIU/mL
[2020-11-25 12:38] LABS: Thyroid Stimulating Hormone 0.997 uIU/mL (0.47-4.68)
== END ==
PROVIDERS: Family Provider Family Medicine; PCP Nurse Practitioner; Referring Provider Obstetrics & Gynecology; Visit Provider Obstetrics & Gynecology
DX: N92.6 Irregular menstruation, unspecified (principal); F41.9 Anxiety disorder, unspecified; N39.0 Urinary tract infection, site not specified; R00.2 Palpitations
CPT/HCPCS: 36415; 76830; 76856; 80053; 80061; 83036; 84439; 84443; 84481; 84702; 85025

== ENCOUNTER 2021-01-05 13:51 | Emergency (ER) | payer OTHER, MEDICAID, SELFPAY ==
[2021-01-05] VITALS (12 sets, daily range): BP systolic 108–124; BP diastolic 66–78; PULSE 60–84; RESP 14–18; TEMP 36.8; O2SAT 99–100; BMI 29.2
--- NOTE | 2021-01-05 15:05 | DI.RAD.S_ITS ---
PROCEDURE: XR CHEST 1V INDICATIONS: Flu like symptoms TECHNIQUE: One view of the chest was acquired. COMPARISON: [facility], CR, XR CHEST 1V, 10/05/2020, 22:21. FINDINGS: Surgical changes and devices: None. Lungs and pleura: Lungs are clear. No pleural effusions or pneumothorax. Mediastinum: Mediastinal contours appear normal. Heart size is normal. Bones and chest wall: No suspicious bony lesions. Overlying soft tissues appear unremarkable. IMPRESSION: No acute cardiopulmonary abnormality. Dictated by: Jamie Blunt M.D. on 01/05/2021 at 16:10 Approved by: Jamie Blunt M.D. on 01/05/2021 at 16:11
--- NOTE | 2021-01-05 16:00 | PC.NURSE ---
Attempted IV access on pt unsuccessfully, Philip DAMON agreeable to lab draw without IV, lab called and stated they attempted 3 times unsuccessfully. Pt states she has been a difficult stick in the past. Philip DAMON aware.
[2021-01-05 16:18] LABS: COVID19 -Nasal RAPID Negative (Negative)
--- NOTE | 2021-01-05 16:35 | ED.SOB ---
HPI - SOB/Dyspnea General Chief Complaint: Shortness of Breath/Dyspnea Stated Complaint: Chest Pain, SOB Time Seen by Provider: 01/05/21 14:11 Source: patient Mode of arrival: Ambulatory Limitations: no limitations Related Data Previous Rx's Medication Instructions Recorded albuterol sulfate 90 mcg/actuation 2 puff INHALATION Q6H PRN 3 Days g 01/05/21 aerosol inhaler Allergies Allergy/AdvReac Type Severity Reaction Status Date / Time amoxicillin [AMOXICILLIN] Allergy Severe rash, Verified 01/05/21 14:01 throat swelling Influenza Virus Vaccines Allergy Severe diffuse Verified 01/05/21 14:01 skin rash, difficulty breathing. heavy metal Allergy Severe Diffuse Uncoded 12/01/20 08:53 rash, breathing difficulties Patient History Medical History Abnormal Pap smear of cervix (~2006) Allergic rhinitis Anemia (~2012) Anxiety Depression Human papilloma virus (~2006) Hyperlipidemia LDL goal <100 Painful menstrual periods Palpitations Rosacea Skin rash UTI (urinary tract infection) (~2006) Weight gain, abnormal Family History Father Age: 62 Hypertension Hyperlipidemia Mother Uterine cancer Cancer Diabetes mellitus Sister Age: 34 Hyperlipidemia Social History Smoking Status: Never smoker Smoking Status: Never smoker alcohol intake frequency: 0-2 drinks per day Substance Use Type: does not use Exam Initial Vital Signs Initial Vital Signs: Vital Signs Temperature 98.3 F 01/05/21 13:56 Pulse Rate 66 01/05/21 13:56 Respiratory Rate 14 01/05/21 13:56 Blood Pressure 124/78 01/05/21 13:56 Pulse Oximetry 100 01/05/21 13:56 Course Orders Ordered: Discontinued Medications Albuterol (Albuterol Hfa Mdi 60 Puff/8 Gm Inhaler) 2 puff INH NOW ONE Stop: 01/05/21 17:19 Albuterol (Albuterol 2.5 Mg/3 Ml Neb (Adult)) 2.5 mg INH NOW ONE Stop: 01/05/21 17:46 Last Admin: 01/05/21 17:48 Dose: 2.5 mg Documented by: BROOKE Vital Signs Vital signs: Vital Signs - 8 hr 01/05/21 13:56 01/05/21 14:12 01/05/21 14:30 Temperature 98.3 F Pulse Rate 66 74 64 Respiratory Rate 14 Blood Pressure 124/78 Pulse Oximetry 100 100 100 01/05/21 15:00 01/05/21 15:11 Temperature Pulse Rate 61 67 Respiratory Rate Blood Pressure 113/66 Pulse Oximetry 100 100 MDM - SOB/Dyspnea Lab Data Result diagrams: 01/05/21 16:33 01/05/21 16:33 Labs: Lab Results 01/05/21 01/05/21 01/05/21 Range/Units 15:33 16:33 16:33 WBC 9.0 (4.5-11.0) X10^3/uL RBC 4.18 (4.0-5.2) X10^6/uL Hgb 13.0 (12.0-16.0) g/dL Hct 38.3 (36-46) % MCV 91.5 (80-100) fL MCH 31.1 (26-34) PG MCHC 33.9 (30-36) % RDW 13.6 (11.6-14.8) % Plt Count 318 (150-400) X10^3/uL Neut % (Auto) 62.1 (50-75) % Lymph % (Auto) 27.6 (25-40) % [place] % (Auto) 7.5 (3-14) % Eos % (Auto) 2.0 (2-4) % Baso % (Auto) 0.8 (0-2) % Neut # (Auto) 5600 (7351-4383) /uL Lymph # (Auto) 2500 (9743-6078) /uL [place] # (Auto) 700 (0-900) /uL Eos # (Auto) 200 (0-450) /uL Baso # (Auto) 100 (0-100) /uL Sodium 139 (137-145) mmol/L Potassium 4.1 (3.4-5.1) mmol/L Chloride 106 (98-107) mmol/L Carbon Dioxide 25 (22-32) mmol/L BUN 9 (7-17) mg/dL Creatinine 0.60 (0.52-1.04) mg/dL Estimated GFR > 60.0 (>60) mL/min BUN/Creatinine Ratio 15.0 (6-22) Glucose 92 (70-100) mg/dL Calcium 9.9 (8.4-10.2) mg/dL Magnesium 2.1 (1.6-2.3) mg/dL Total Bilirubin 0.2 (0.2-1.3) mg/dL AST 24 (14-36) IU/L ALT 16 (<35) IU/L Alkaline Phosphatase 43 (38-126) U/L Total Creatine Kinase 55 (30-135) U/L CK-MB (CK-2) TNP CK-MB (CK-2) Rel Index TNP Troponin I < 0.012 (0.01-0.034) ng/mL Total Protein 7.9 (6.3-8.2) g/dL Albumin 4.7 (3.5-5.0) g/dL Globulin 3.2 (1.7-4.1) g/dL Albumin/Globulin Ratio 1.5 (1.0-2.8) Lipase 45 (23-300) U/L SARS-CoV-2 (PCR) Negative (Negative) Imaging Data Chest x-ray: Radiologist's Impression: PROCEDURE:? XR CHEST 1V ? INDICATIONS:? Flu like symptoms ? TECHNIQUE:? One view of the chest was acquired.? ? COMPARISON:? [facility], CR, XR CHEST 1V, 10/05/2020, 22:21. ? FINDINGS:? ? Surgical changes and devices:? None.? ? Lungs and pleura:? Lungs are clear.? No pleural effusions or pneumothorax.? ? Mediastinum:? Mediastinal contours appear normal.? Heart size is normal.? ? Bones and chest wall:? No suspicious bony lesions.? Overlying soft tissues appear unremarkable.? ? IMPRESSION:? No acute cardiopulmonary abnormality. ? ? Dictated by: Jamie Blunt M.D. on 01/05/2021 at 16:10 ? ? Approved by: Jamie Blunt M.D. on 01/05/2021 at 16:11 ? Discharge Plan Departure Patient Disposition: Home Clinical Impression: Shortness of breath Instructions: DI for Asthma -- Adult Activity Restrictions/Additional Instructions: You were evaluated in the ED today for shortness of breath, chest pain, cough. Your EKG, chest x-ray, labs were all normal. It is common for people to have a reaction to elements such as black mold, which can cause respiratory symptoms. Your symptoms improved today with albuterol. You can continue to use the albuterol if you experience shortness of breath. Please limit your exposure to the offending organism. Follow-up with your PCP. Return to the ED if you experience increasing shortness of breath, chest pain, throat tightness, lip or tongue swelling. Prescriptions: New albuterol sulfate 90 mcg/actuation HFA aerosol inhaler 2 puff inhalation Q6H PRN (Reason: shortness of breath or wheezing) 3 Days RF: 0 Referrals: Charline Manjarrez ARNP [Primary Care Provider] -
[2021-01-05 16:47] LABS: Add Manual Diff / Slide Review NO; Basophils Absolute Auto 100 /uL (0-100); Basophils Percent Auto 0.8 % (0-2); Eosinophils Absolute Auto 200 /uL (0-450); Hematocrit 38.3 % (36-46); Lymphocytes Absolute Auto 2500 /uL (1100-4500); Lymphocytes Percent Auto 27.6 % (25-40); Mean Corpuscular HGB Conc 33.9 % (30-36); Mean Corpuscular Hemoglobin 31.1 PG (26-34); Mean Corpuscular Volume 91.5 fL (80-100); Monocytes Absolute Auto 700 /uL (0-900); Monocytes Percent Auto 7.5 % (3-14); Neutrophils Absolute Auto 5600 /uL (1500-7000); Neutrophils Percent Auto 62.1 % (50-75); Platelet Count 318 X10^3/uL (150-400); Red Blood Cell Count 4.18 X10^6/uL (4.0-5.2); Red Cell Distribution Width 13.6 % (11.6-14.8)
[2021-01-05 16:54] LABS: Alanine Aminotransferase 16 IU/L (<35); Albumin 4.7 g/dL (3.5-5.0); Albumin Globulin Ratio 1.5 (1.0-2.8); Alkaline Phosphatase 43 U/L (38-126); Aspartate Aminotransferase 24 IU/L (14-36); Bilirubin Total 0.2 mg/dL (0.2-1.3); Blood Urea Nitrogen 9 mg/dL (7-17); Calcium 9.9 mg/dL (8.4-10.2); Carbon Dioxide 25 mmol/L (22-32); Chloride 106 mmol/L (98-107); Creatine Kinase 55 U/L (30-135); Estimated Glomerular Filt Rate > 60.0 mL/min (>60); Globulin 3.2 g/dL (1.7-4.1); Glucose 92 mg/dL (70-100); HEMOLYSIS < 15 (0-50); Lipase 45 U/L (23-300); Magnesium 2.1 mg/dL (1.6-2.3); Potassium 4.1 mmol/L (3.4-5.1); Sodium 139 mmol/L (137-145); Total Protein 7.9 g/dL (6.3-8.2)
--- NOTE | 2021-01-05 16:58 | ED_ITS ---
HPI - SOB/Dyspnea <Rhona Palacios PA-C - Last Filed: 01/05/21 19:36> General Chief Complaint: Shortness of Breath/Dyspnea Stated Complaint: Chest Pain, SOB Time Seen by Provider: 01/05/21 14:11 Source: patient Mode of arrival: Ambulatory Limitations: no limitations History of Present Illness HPI Narrative: 35-year-old female with past medical history anemia, anxiety presents to the ED with 1 week of shortness of breath, cough, chest pain. Patient states she was exposed to some black mold 1 week ago, following which she developed tightness in her throat, shortness of breath, left-sided chest pain, cough. Patient states that her symptoms improved when she was no longer exposed to mold, was again exposed yesterday, with recurrence of her symptoms. Again, her symptoms abated with the exposure went away. In the ED patient denies throat tightness, chest pain, trouble breathing. Patient denies fever, chills, headache, nausea, vomiting, abdominal pain, lightheadedness, dizziness, syncope. Denies recent travel, exogenous hormone use, immobilization, prior history of DVT, hemoptysis, leg swelling. Related Data Allergies Allergy/AdvReac Type Severity Reaction Status Date / Time amoxicillin [AMOXICILLIN] Allergy Severe rash, Verified 01/05/21 14:01 throat swelling Influenza Virus Vaccines Allergy Severe diffuse Verified 01/05/21 14:01 skin rash, difficulty breathing. heavy metal Allergy Severe Diffuse Uncoded 12/01/20 08:53 rash, breathing difficulties Review of Systems <Rhona Palacios PA-C - Last Filed: 01/05/21 19:36> Constitutional Constitutional: Denies chills, Denies fatigue, Denies fever(s), Denies frequent falls, Denies lethargy and Denies weakness Eyes Eyes: Denies change in vision, Denies eye discharge, Denies irritation and Denies loss of vision ENT Ears, Nose, Mouth, and Throat: Denies change in voice, Denies dizziness, Denies neck pain, Denies sore throat and Denies throat swelling Cardiovascular Cardiovascular: Reports chest pain, Denies irregular heart rhythm, Denies lightheadedness, Denies palpitations, Reports dyspnea, Denies dyspnea on exertion and Denies orthopnea Respiratory Respiratory: Reports cough, Reports dyspnea, Denies dyspnea on exertion and Denies wheezing Gastrointestinal Gastrointestinal: Denies abdominal pain, Denies change in bowel habits, Denies diarrhea, Denies nausea and Denies vomiting Musculoskeletal Musculoskeletal: Denies neck pain and Denies numbness Integumentary/Breasts Skin/Breast: Denies pruritus, Denies erythema, Denies rash and Denies wounds Neurologic Neurologic: Denies behavioral changes, Denies confusion, Denies dizziness, Denies frequent falls, Denies loss of vision, Denies numbness and Denies weakness Psychiatric Psychiatric: Denies anxiety, Denies behavioral changes, Denies confusion, Denies depression, Denies homicidal ideation and Denies suicidal ideation Endocrine Endocrine: Denies fatigue, Denies flushing and Denies palpitations Hematologic/Lymphatic Hematologic/Lymphatic: Denies easy bruising Allergic/Immunologic Allergic/Immunologic: Denies urticaria, Denies throat swelling and Denies wheezing Patient History <Rhona Palacios PA-C - Last Filed: 01/05/21 19:36> Medical History Abnormal Pap smear of cervix (~2006) Allergic rhinitis Anemia (~2012) Anxiety Depression Human papilloma virus (~2006) Hyperlipidemia LDL goal <100 Painful menstrual periods Palpitations Rosacea Skin rash UTI (urinary tract infection) (~2006) Weight gain, abnormal Family History Father Age: 62 Hypertension Hyperlipidemia Mother Uterine cancer Cancer Diabetes mellitus Sister Age: 34 Hyperlipidemia Social History Smoking Status: Never smoker Smoking Status: Never smoker alcohol intake frequency: 0-2 drinks per day Substance Use Type: does not use Exam <Rhona Palacios PA-C - Last Filed: 01/05/21 19:36> Narrative Exam Narrative: Benign physical exam. No signs of angioedema. Patent airway. Initial Vital Signs Initial Vital Signs: Vital Signs Temperature 98.3 F 01/05/21 13:56 Pulse Rate 66 01/05/21 13:56 Respiratory Rate 14 01/05/21 13:56 Blood Pressure 124/78 01/05/21 13:56 Pulse Oximetry 100 01/05/21 13:56 Const General: cooperative HENMT Head: normocephalic and atraumatic Ears: external ears normal and TM's normal bilaterally Nose: external nose normal and No nasal discharge Face and sinus: sinuses nontender, face symmetric, no sinus tenderness and No dry mucous membranes Mouth: oral mucosae normal and moist mucous membranes Teeth and gingiva: dentition normal Throat: tonsils normal and uvula midline Eyes General: appearance normal, both eyes and all related structures Eyelids: eyelids normal Conjunctivae: conjunctivae normal Sclera: sclerae normal Pupils: PERRL EOM: EOM intact bilaterally Neck Neck: normal visual inspection, trachea midline, No lymphadenopathy, No midline deformity and No JVD Lymphatic: No lymphedema Chest Chest: normal inspection of the chest Resp Effort & Inspection: normal respiratory effort, able to speak in complete sentences, no respiratory distress and no use of accessory muscles Auscultation: clear to auscultation bilaterally, no rales, no rhonchi and no wheezes Cardio Rate: regular rate Rhythm: regular rhythm Heart Sounds: no click, no gallops, no murmurs and no rubs Pulses: normal peripheral pulses GI Inspection: non-distended Palpation: soft, no hepatosplenomegaly, No guarding, No pulsatile mass and No tender Auscultation: normal bowel sounds Back/Spine/Pelvis Back: No CVA tenderness Cervical Spine: cervical ROM normal and No pain with cervical ROM Thoracic/Lumbar Spine: thoracic and lumbar spine normal to inspection Skin General: no rashes or lesions noted, No jaundice and No petechiae Neuro General: patient alert, patient oriented x3, gait normal and no focal motor defi cits Speech: speech normal Extrem General: full ROM, no clubbing, cyanosis or edema, no pedal edema and no calf tenderness Psych Appearance: well kempt Mental Status: mental status grossly normal Attitude: cooperative Thought Content: normal and suicidality Judgment: judgment good <Hang Kelly MD - Last Filed: 01/11/21 10:58> Initial Vital Signs Initial Vital Signs: Vital Signs Temperature 98.3 F 01/05/21 13:56 Pulse Rate 66 01/05/21 13:56 Respiratory Rate 14 01/05/21 13:56 Blood Pressure 124/78 01/05/21 13:56 Pulse Oximetry 100 01/05/21 13:56 Scores <Rhona Palacios PA-C - Last Filed: 01/05/21 19:36> PERC Score Age greater than or equal to 50 years: No Heart rate greater than or equal to 100 bpm: No Room Air O2 Sat less than 95%: No Unilateral leg swelling: No Recent trauma or surgery: No Hemoptysis: No Prior PE or DVT: No Hormone Use: No Total PERC Score: 0 <Hang Kelly MD - Last Filed: 01/11/21 10:58> PERC Score Total PERC Score: 0 Course <Rhona Palacios PA-C - Last Filed: 01/05/21 19:36> Course Course Narrative: Labs within normal limit, chest x-ray normal, EKG normal. Patient not complaining of chest pain in the ED. patient still complains of shortness of breath. SpO2 high 90s on room air. Patient's symptoms improved with albuterol. Will discharge home with a prescription for albuterol, ED return precautions. Orders Ordered: Discontinued Medications Albuterol (Albuterol Hfa Mdi 60 Puff/8 Gm Inhaler) 2 puff INH NOW ONE Stop: 01/05/21 17:19 Albuterol (Albuterol 2.5 Mg/3 Ml Neb (Adult)) 2.5 mg INH NOW ONE Stop: 01/05/21 17:46 Last Admin: 01/05/21 17:48 Dose: 2.5 mg Documented by: BROOKE Vital Signs Vital signs: Vital Signs - 8 hr 01/05/21 13:56 01/05/21 14:12 01/05/21 14:30 Temperature 98.3 F Pulse Rate 66 74 64 Respiratory Rate 14 Blood Pressure 124/78 Pulse Oximetry 100 100 100 01/05/21 15:00 01/05/21 15:11 01/05/21 15:30 Temperature Pulse Rate 61 67 71 Respiratory Rate Blood Pressure 113/66 Pulse Oximetry 100 100 100 01/05/21 16:00 01/05/21 16:37 01/05/21 17:00 Temperature Pulse Rate 66 69 69 Respiratory Rate Blood Pressure Pulse Oximetry 100 100 99 01/05/21 17:30 01/05/21 17:49 01/05/21 18:00 Temperature Pulse Rate 61 60 84 Respiratory Rate 18 16 Blood Pressure 108/72 Pulse Oximetry 99 100 100 <Hang Kelly MD - Last Filed: 01/11/21 10:58> Orders Ordered: Discontinued Medications Albuterol (Albuterol Hfa Mdi 60 Puff/8 Gm Inhaler) 2 puff INH NOW ONE Stop: 01/05/21 17:19 Albuterol (Albuterol 2.5 Mg/3 Ml Neb (Adult)) 2.5 mg INH NOW ONE Stop: 01/05/21 17:46 Last Admin: 01/05/21 17:48 Dose: 2.5 mg Documented by: BROOKE Vital Signs Vital signs: Vital Signs - 8 hr 01/05/21 13:56 01/05/21 14:12 01/05/21 14:30 Temperature 98.3 F Pulse Rate 66 74 64 Respiratory Rate 14 Blood Pressure 124/78 Pulse Oximetry 100 100 100 01/05/21 15:00 01/05/21 15:11 01/05/21 15:30 Temperature Pulse Rate 61 67 71 Respiratory Rate Blood Pressure 113/66 Pulse Oximetry 100 100 100 01/05/21 16:00 01/05/21 16:37 01/05/21 17:00 Temperature Pulse Rate 66 69 69 Respiratory Rate Blood Pressure Pulse Oximetry 100 100 99 01/05/21 17:30 01/05/21 17:49 01/05/21 18:00 Temperature Pulse Rate 61 60 84 Respiratory Rate 18 16 Blood Pressure 108/72 Pulse Oximetry 99 100 100 MDM - SOB/Dyspnea <Rhona Palacios PA-C - Last Filed: 01/05/21 19:36> Medical Records Attestation: I reviewed the patient's medical records. Lab Data Lab results narrative: Labs WNL Result diagrams: 01/05/21 16:33 01/05/21 16:33 Labs: Lab Results 01/05/21 01/05/21 01/05/21 Range/Units 15:33 16:33 16:33 WBC 9.0 (4.5-11.0) X10^3/uL RBC 4.18 (4.0-5.2) X10^6/uL Hgb 13.0 (12.0-16.0) g/dL Hct 38.3 (36-46) % MCV 91.5 (80-100) fL MCH 31.1 (26-34) PG MCHC 33.9 (30-36) % RDW 13.6 (11.6-14.8) % Plt Count 318 (150-400) X10^3/uL Neut % (Auto) 62.1 (50-75) % Lymph % (Auto) 27.6 (25-40) % [place] % (Auto) 7.5 (3-14) % Eos % (Auto) 2.0 (2-4) % Baso % (Auto) 0.8 (0-2) % Neut # (Auto) 5600 (1928-4398) /uL Lymph # (Auto) 2500 (8314-4102) /uL [place] # (Auto) 700 (0-900) /uL Eos # (Auto) 200 (0-450) /uL Baso # (Auto) 100 (0-100) /uL Sodium 139 (137-145) mmol/L Potassium 4.1 (3.4-5.1) mmol/L Chloride 106 (98-107) mmol/L Carbon Dioxide 25 (22-32) mmol/L BUN 9 (7-17) mg/dL Creatinine 0.60 (0.52-1.04) mg/dL Estimated GFR > 60.0 (>60) mL/min BUN/Creatinine Ratio 15.0 (6-22) Glucose 92 (70-100) mg/dL Calcium 9.9 (8.4-10.2) mg/dL Magnesium 2.1 (1.6-2.3) mg/dL Total Bilirubin 0.2 (0.2-1.3) mg/dL AST 24 (14-36) IU/L ALT 16 (<35) IU/L Alkaline Phosphatase 43 (38-126) U/L Total Creatine Kinase 55 (30-135) U/L CK-MB (CK-2) TNP CK-MB (CK-2) Rel Index TNP Troponin I < 0.012 (0.01-0.034) ng/mL Total Protein 7.9 (6.3-8.2) g/dL Albumin 4.7 (3.5-5.0) g/dL Globulin 3.2 (1.7-4.1) g/dL Albumin/Globulin Ratio 1.5 (1.0-2.8) Lipase 45 (23-300) U/L SARS-CoV-2 (PCR) Negative (Negative) Imaging Data Chest x-ray: Radiologist's Impression: PROCEDURE:? XR CHEST 1V ? INDICATIONS:? Flu like symptoms ? TECHNIQUE:? One view of the chest was acquired.? ? COMPARISON:? [facility], CR, XR CHEST 1V, 10/05/2020, 22:21. ? FINDINGS:? ? Surgical changes and devices:? None.? ? Lungs and pleura:? Lungs are clear.? No pleural effusions or pneumothorax.? ? Mediastinum:? Mediastinal contours appear normal.? Heart size is normal.? ? Bones and chest wall:? No suspicious bony lesions.? Overlying soft tissues appear unremarkable.? ? IMPRESSION:? No acute cardiopulmonary abnormality. ? ? Dictated by: Jamie Blunt M.D. on 01/05/2021 at 16:10 ? ? Approved by: Jamie Blunt M.D. on 01/05/2021 at 16:11 ? ECG Data Interpretation: NSR, no ST-T changes, no axis deviation. MDM Narrative Medical decision making narrative: 35-year-old female with past medical history anemia, anxiety presents to the ED with 1 week of shortness of breath, cough, chest pain. Perc negative, unlikely PE. Concern for ACS versus anaphylactic reaction versus allergic reaction versus COVID 19 infection versus other viral syndrome. Will order chest x-ray, EKG, labs, troponin, COVID-19 test. Will reassess. <Hang Kelly MD - Last Filed: 01/11/21 10:58> Lab Data Labs: Lab Results 01/05/21 01/05/21 01/05/21 Range/Units 15:33 16:33 16:33 WBC 9.0 (4.5-11.0) X10^3/uL RBC 4.18 (4.0-5.2) X10^6/uL Hgb 13.0 (12.0-16.0) g/dL Hct 38.3 (36-46) % MCV 91.5 (80-100) fL MCH 31.1 (26-34) PG MCHC 33.9 (30-36) % RDW 13.6 (11.6-14.8) % Plt Count 318 (150-400) X10^3/uL Neut % (Auto) 62.1 (50-75) % Lymph % (Auto) 27.6 (25-40) % [place] % (Auto) 7.5 (3-14) % Eos % (Auto) 2.0 (2-4) % Baso % (Auto) 0.8 (0-2) % Neut # (Auto) 5600 (0293-4693) /uL Lymph # (Auto) 2500 (3917-1590) /uL [place] # (Auto) 700 (0-900) /uL Eos # (Auto) 200 (0-450) /uL Baso # (Auto) 100 (0-100) /uL Sodium 139 (137-145) mmol/L Potassium 4.1 (3.4-5.1) mmol/L Chloride 106 (98-107) mmol/L Carbon Dioxide 25 (22-32) mmol/L BUN 9 (7-17) mg/dL Creatinine 0.60 (0.52-1.04) mg/dL Estimated GFR > 60.0 (>60) mL/min BUN/Creatinine Ratio 15.0 (6-22) Glucose 92 (70-100) mg/dL Calcium 9.9 (8.4-10.2) mg/dL Magnesium 2.1 (1.6-2.3) mg/dL Total Bilirubin 0.2 (0.2-1.3) mg/dL AST 24 (14-36) IU/L ALT 16 (<35) IU/L Alkaline Phosphatase 43 (38-126) U/L Total Creatine Kinase 55 (30-135) U/L CK-MB (CK-2) TNP CK-MB (CK-2) Rel Index TNP Troponin I < 0.012 (0.01-0.034) ng/mL Total Protein 7.9 (6.3-8.2) g/dL Albumin 4.7 (3.5-5.0) g/dL Globulin 3.2 (1.7-4.1) g/dL Albumin/Globulin Ratio 1.5 (1.0-2.8) Lipase 45 (23-300) U/L SARS-CoV-2 (PCR) Negative (Negative) Discharge Plan Departure Patient Disposition: Home Clinical Impression: Shortness of breath Instructions: DI for Asthma -- Adult Activity Restrictions/Additional Instructions: You were evaluated in the ED today for shortness of breath, chest pain, cough. Your EKG, chest x-ray, labs were all normal. It is common for people to have a reaction to elements such as black mold, which can cause respiratory symptoms. Your symptoms improved today with albuterol. You can continue to use the albuterol if you experience shortness of breath. Please limit your exposure to the offending organism. Follow-up with your PCP. Return to the ED if you experience increasing shortness of breath, chest pain, throat tightness, lip or tongue swelling. Referrals: Charline Manjarrez ARNP [Primary Care Provider] - <Hang Kelly MD - Last Filed: 01/11/21 10:58> Cosign ED Attending Cosradhaature Attestation: I was immediately available in the department for consultation. This documentation has been reviewed and I agree with assessment and plan. Supervised by Hang Kelly MD
[2021-01-05 17:05] LABS: Troponin I < 0.012 ng/mL (0.01-0.034)
[2021-01-05] MEDS: ALBUTEROL 2.5 MG/3 ML NEB (ADULT) INH (17:48)
== END 2021-01-05 18:25 | disposition home or self-care (01) ==
PROVIDERS: Emergency Medicine; Emergency Provider Student in an Organized Health Care Education/Training Program; Family Provider Family Medicine; PCP Nurse Practitioner
DX: R06.02 Shortness of breath (principal); R05 Cough; R07.9 Chest pain, unspecified; Z20.822 Contact with and (suspected) exposure to COVID-19
CPT/HCPCS: 36415; 71045; 80053; 82550; 83690; 83735; 84484; 85025; 87635; 93005; 93010; 94640; 99284; C9803; A9270; J7613

== ENCOUNTER → 2021-07-23 10:45 | Outpatient (CLI) | payer OTHER, MEDICAID, SELFPAY ==
--- NOTE | 2021-07-23 | DI.US.S_ITS ---
PROCEDURE: US OB >= 14 WEEKS FETUS INDICATIONS: 20 WEEK ANATOMY SCAN OUTSIDE/PRIOR DATING DATA: Last menstrual period (LMP): 03/04/2021. LMP-based estimated date of delivery (RONNIE): 12/09/2021. First dating scan (date and location): 07/23/2021 at . Estimated date of delivery (RONNIE) from first dating scan: 12/01/2021. The calculations are made using the RONNIE of LMP 12/09/2021. TECHNIQUE: Real-time scanning was performed of the fetus, with image documentation and biometric measurements. COMPARISON: None. FINDINGS: General: A single living intrauterine gestation is present. Presentation: Cephalic. Placenta: Placental position is anterior without previa. Amniotic fluid index: 14.4 cm, normal range is 5-24 cm. Single deepest vertical pocket is 3.9 cm. heart rate: 144 beats per minute. Maternal cervical canal: 4.9 cm long. Normal lower limit is 2.5 cm. biometrics: Biparietal diameter: 21 weeks 3 days Head circumference: 21 weeks 2 days Abdominal circumference: 21 weeks 4 days Femur length: 21 weeks 0 day Clinically estimated gestational age by LMP: 20 weeks 1 day Composite gestational age from present scan: 21 weeks 2 days Estimated weight and percentile: 414 g. Anatomic survey: Neuro: Ventricles are non-dilated at less than 10 mm. Cisterna magna is normal at 3-11 mm. Cerebellum is normal in size and morphology. Nuchal skin fold: Normal at less than 6 mm between 14-21 weeks gestational age. Face: Nose and lips, facial profile are normal. Spine: No evidence for spina bifida. Heart: 4-chambered heart is present, with normal ventricular outflow tracts. Diaphragm: Diaphragm is intact. Stomach: Left-sided stomach is present. Kidneys: No hydronephrosis. Normal is less than 5 mm in 2nd trimester, less than 7 mm in 3rd trimester. Cord: 3-vessel cord has orthotopic insertion. Bladder: Normal in size. Extremities: All 4 extremities identified. IMPRESSION: 1. A single living intrauterine gestation with an estimated gestational age of 21 weeks 2 days based on the current ultrasound corresponding to ultrasound RONNIE 12/01/2021. 2. Normal anatomic survey. We strive to produce accurate, complete, and clear reports of imaging services. To assist us in improving patient care, this report was composed using standard report templates and voice recognition software. Therefore, it may contain abnormal punctuation, insertions and/or omissions. Occasional wrong-word or sound-alike substitutions may occur. Though we review the report and make efforts to correct it, we do recommend that the report be read carefully in proper context to recognize any text inaccuracies. Dictated by: Perze Noble M.D. on 07/23/2021 at 15:11 Approved by: Perez Noble M.D. on 07/23/2021 at 15:28
== END ==
PROVIDERS: Family Provider Family Medicine; PCP Nurse Practitioner; Referring Provider Midwife; Visit Provider Midwife
DX: Z36.89 Encounter for other specified antenatal screening (principal); Z3A.21 21 weeks gestation of pregnancy
CPT/HCPCS: 76811

== ENCOUNTER → 2022-03-12 14:46 | Outpatient (CLI) | payer OTHER, MEDICAID, SELFPAY ==
[2022-03-12 15:49] LABS: COVID19 -Nasal RAPID Negative (Negative)
== END ==
PROVIDERS: Family Provider Family Medicine; PCP Nurse Practitioner; Visit Provider Obstetrics & Gynecology
DX: Z01.812 Encounter for preprocedural laboratory examination (principal); Z20.822 Contact with and (suspected) exposure to COVID-19
CPT/HCPCS: 87635; C9803

== ENCOUNTER 2022-03-15 07:53 | Day surgery (SDC) | payer OTHER, MEDICAID, SELFPAY ==
[2022-03-10 14:50] VITALS: BMI 30.3
--- NOTE | 2022-03-15 | PATH_ITS ---
[facility] Accession Number: [id number] . 01 Material submitted: . PART A: ectocervix - ECTOCERVIX PART B: endocervix - ENDOCERVIX . 01 Clinical history: . A: ECTOCERVIX LONG SUTURE 1200 SHORT SUTURE 600 . 01 Diagnosis: A. Ectocervix, LEEP Biopsy: Invasive squamous cell carcinoma, moderately to poorly differentiated. Involves the 6 o'clock designated fragment and the fourth-described tissue fragment (additional unoriented fragments, inked orange per the gross description). Invasive tumor extends to the ectocervical margin and the black inked deep margin. Involvement of the endocervical margin cannot be entirely excluded. Invasive squamous cell carcinoma involves an entire electrocauterized tissue fragment designated grossly as orange-inked and part of the additional unoriented fragments. Please see comment. . B. Endocervix, LEEP Biopsy: Endocervical tissue. Negative for dysplasia or malignancy. [facility] 03/19/2022 1714 Local . 01 Comment: The largest contiguous horizontal measurement by tissue examination is 8 mm. The largest deep measurement is 4 mm. . As part of routine director quality systems, this case was also reviewed by Dr. Estes, who agrees with the interpretation. . Messages regarding results left with Rosario, in Dr. Steinberg's office, on 03-17-22 at 1:52 p.m. and on 03-19-22 at 3:24 p.m. . 01 Electronically signed: . Ashley Faye MD, Pathologist NPI- [id number] . 01 Gross description: . A. The specimen is received in formalin, labeled with the patient's name, , and ectocervix long suture 12 o'clock, short suture 6 o'clock, and consists of four fragments of cervix. The first has a long suture designating 12 o'clock per the requisition and measures 1.8 x 1.5 x 0.5 cm. The ectocervix is schwartz and finely granular with no endocervical margin identified. The margins are inked blue, and the specimen is serially sectioned. The second fragment has a short suture designating 6 o'clock per the requisition and measuring 1.2 x 0.8 x 0.5 cm. Minimal schwartz, finely granular ectocervix is identified. The margins are inked black, and the fragment is serially sectioned. The third fragment is unoriented and measures 1.3 x 1.1 x 0.4 cm with a small amount of schwartz, finely granular ectocervix identified. The margins are inked green, and the fragment is serially sectioned. The fourth fragment measures 0.8 x 0.5 x 0.2 cm with no ectocervix identified. The external surface is inked orange. The specimen is submitted entirely as follows: A1: Presumed 9 o'clock to 12 o'clock. A2: 12 o'clock to presumed 3 o'clock. A3: 6 o'clock fragment. A4: Additional unoriented fragments. B. The specimen is received in formalin, labeled with the patient's name, , and endocervix, and consists of an unoriented linear fragment of cervix measuring 1.3 x 0.9 x 0.6 cm with no cervical os, ectocervix, or endocervical margin identified. The fragment has a concave surface which is inked black and a convex surface which is inked blue. The specimen is serially sectioned and submitted entirely in cassettes B1 B2. ([id number]) /[facility] 03/17/2022 0341 Local . 01 Microscopic: . An immunohistochemistry panel is performed to further evaluate the cells of interest. The control stains show appropriate reactivity. . RESULTS: Block A3: P40: Positive in regions of interest. LYDIA: Positive in regions of interest. P16: Positive in regions of interest. . The above results support an interpretation of invasive squamous cell carcinoma. The control slides stained appropriately. . . . * This test was developed and its performance characteristics determined by [employer]. It has not been cleared or approved by the U.S. Food and Drug Administration. The FDA has determined that such clearance or approval is not necessary. This test is used for clinical purposes. It should not be regarded as investigational or for research. . 01 Pathologist provided ICD-10: R87.613, C53.9 . 01 CPT . 598324, 981577, G42151 Specimen Comment: A courtesy copy of this report has been sent to [phone] Performed at: 01 [facility] [address] [place] [address], [place], [place] [id number] MD Uri Onofre MD Phone: [phone]
[2022-03-15] MEDS: LACTATED RINGERS 1,000 ML 100 ML IV (08:10)
[2022-03-15 08:19] VITALS: BP 109/79; PULSE 84; RESP 16; TEMP 36.8; O2SAT 100; BMI 30.3
--- NOTE | 2022-03-15 08:49 | PM.HP.1 ---
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 Patient History Medical History (Updated 03/10/22 @ 14:51 by Belinda Sutton RN) Abnormal Pap smear of cervix (~2006) Allergic rhinitis Anemia (~2012) Anxiety COVID-19 virus infection (10/05/20) Depression Human papilloma virus (~2006) Hyperlipidemia LDL goal <100 Nevus Painful menstrual periods Palpitations Rosacea Skin rash UTI (urinary tract infection) (~2006) Weight gain, abnormal Family & Social History Family History Father Age: 63 Hypertension Hyperlipidemia Mother Uterine cancer Cancer Diabetes mellitus Sister Age: 35 Hyperlipidemia Social History: household members spouse,children Tobacco & Substance use: Smoking Status Never smoker alcohol intake current alcohol intake frequency 0-2 drinks per day Substance Use Type does not use Meds Home Medications and Allergies Home Medications Medication Instructions Recorded Confirmed Type ascorbate calcium (vitamin C) PO 11/02/21 02/23/22 History cholecalciferol (vitamin D3) PO 11/02/21 02/23/22 History ferrous sulfate [Iron (ferrous PO 11/02/21 02/23/22 History sulfate)] prenat.vits,shalonda,[id number] 1 tab PO DAILY 11/02/21 03/10/22 History Allergies Allergy/AdvReac Type Severity Reaction Status Date / Time amoxicillin [AMOXICILLIN] Allergy Severe rash, Verified 03/15/22 07:42 throat swelling Influenza Virus Vaccines Allergy Severe diffuse Verified 03/15/22 07:42 skin rash, difficulty breathing. heavy metal Allergy Severe Diffuse Uncoded 03/15/22 07:42 rash, breathing difficulties Exam Vital Signs (past 8 hours): - 03/15/22 08:19 Temperature 98.3 F Pulse Rate 84 Respiratory Rate 16 Blood Pressure 109/79 Pulse Oximetry 100 Oxygen Delivery Method Room Air Oxygen Delivery Method Room Air Narrative Exam Narrative: HEENT: No thyromegaly, no anterior cervical or supraclavicular lymphadenopathy. Lungs:Clear to auscultation bilaterally, no wheezes. Cardiovascular: Regular rate and rhythm, no murmurs, rubs, or gallops. Abdomen: No scars. No hepatosplenomegaly. No masses palpable. External genitalia: Normal Vagina: Normal Cervix: Normal Bimanual exam: 6 Week size anteverted uterus. Mobile. Extremities: No edema Assessment & Plan Assessment & Plan narrative: Assessment: 36-year-old 2 para 2 with at least high-grade dysplasia of the endocervix and high-grade dysplasia of the ectocervix Plan: LEEP cone biopsy of the cervix including the endocervical component The risks, benefits, and alternatives to the procedure were explained to the patient. The risks including bleeding and infection. She understands these risks and agrees to proceed. A full par Q was held and consent form was signed. COVID-19 COVID-19 status: Negative Result date/Date tested (Pos, Neg/Pending): 03/12/22 Time Spent With Patient Critical Care time: I spent a total of [] minutes of critical care time on this patient's care today; this time is exclusive of procedural time.
--- NOTE | 2022-03-15 08:51 | PM.PREOP ---
Pre-operative Note COVID-19 COVID-19 status: Negative Result date/Date tested (Pos, Neg/Pending): 03/12/22 Criteria for continued procedure: Non-surgical alternatives not available or appropriate per current SOC Interval Note History & Physical reviewed/Exam performed by Physician: Yes Changes to H&P: No H&P completed within 30 days and has changed as indicated here:: 03/15/22
--- NOTE | 2022-03-15 09:27 | SUR.OPER ---
Lithotomy on padded OR bed, head on pillow, arms secured on padded arm boards at <90 degrees abduction. Legs secured in padded yellow fins stirrups.
[2022-03-15] MEDS: POTASSIUM IODIDE/IODINE 473 ML SOLUTION TOP (09:32)
[2022-03-15] MEDS: FERRIC SUBSULFATE 8 GM SOLUTION 8 ML TOP (09:50)
[2022-03-15 10:06] VITALS: BP 105/72; PULSE 82; RESP 15; TEMP 36.6; O2SAT 99
--- NOTE | 2022-03-15 10:09 | PM.GYNOP.1 ---
Operative Date/Time/Diagnoses Date of procedure: 03/15/22 Time of procedure: 10:09 Pre-op diagnosis: At least high grade dysplasia of the ecto/endocervix Post-op diagnosis: same Procedure & Clinicians Procedure: Procedures Operation Date: 03/15/22 09:00 Actual Procedure Side Surgeon rox LEEP Cone Bx of Cervix Darlin Steinberg MD Indications: At least high-grade cervical dysplasia on colposcopic biopsies Surgeon: Darlin Steinberg Anesthesia Type: General (LMA) Operative Notes Findings: Lugol's light area around the 11 o'clock position and extending into the endocervical canal Closure Type: primary Specimen(s): other (Ecto/Endo cervical LEEP specimens) Estimated blood loss (mL): 150 Blood products transfused: none Procedure in detail: After informed consent was obtained, the patient was taken to the operating room where she was placed in the dorsal supine position. After adequate LMA general anesthesia was achieved, she was placed in the dorsal lithotomy position, and prepped and draped in the usual sterile fashion. A plastic coated bivalve speculum was placed into the vagina. A plastic coated single-tooth tenaculum was placed on the anterior lip of the cervix. The cervix was coated with Lugol solution. There were Lugol's light areas around the 11 o'clock position and extending into the endocervical canal. Using the 20 mm loop with settings at 80 cut and 60 cautery, the anterior lip of the cervix excised and tagged at the 12 o'clock position with a long suture. The posterior lip of the cervix was excised as well and a short suture placed at the 6 o'clock position. The 10 mm loop was then used to excise the endocervix. Ball cautery was used to attempt hemostasis. The bleeding slowed to an ooze. A whipstitch was done with 2-0 chromic circumferentially. The ball cautery was used in the endocervical canal. A small Gelfoam was coated with Monsel's solution and placed into the endocervical canal. Hemostasis was achieved. The single-tooth tenaculum was removed from the anterior lip of the cervix. The plastic coated bivalve speculum was removed from the vagina. Three sources of suction were used for the smoke. All personnel wore 3 M masks. Sponge, lap, and instrument counts were correct x2. The patient tolerated the procedure well, and was taken to PACU in stable condition. Complications: none Post-operative Condition: stable Disposition: PACU Plan for aftercare: Home after recovery
[2022-03-15 10:11] VITALS: BP 105/72; PULSE 87; RESP 16; O2SAT 99
[2022-03-15 10:21] VITALS: BP 102/68; PULSE 68; RESP 17; TEMP 36.3; O2SAT 99
[2022-03-15 10:26] VITALS: BP 114/74; PULSE 16; RESP 16; TEMP 36.3
--- NOTE | 2022-03-15 10:34 | SUR.PHASEI ---
last PACU assessment 1021 unable to change time
== END 2022-03-15 10:48 | disposition home or self-care (01) ==
PROVIDERS: Family Provider Family Medicine; PCP Nurse Practitioner; Referring Provider Obstetrics & Gynecology; Visit Provider Obstetrics & Gynecology
PROC: 0UBC7ZZ Excision of Cervix, Via Natural or Artificial Opening (ICD-10-PCS; CPT 57522; principal; 2022-03-15 09:00)
DX: C53.9 Malignant neoplasm of cervix uteri, unspecified (principal)
CPT/HCPCS: 57522; 81025; A9270; J1100; J1885; J2405; J2704; J3010

== ENCOUNTER 2022-04-30 07:23 | Emergency (ER) | payer OTHER, MEDICAID, SELFPAY ==
[2022-04-30 07:35] VITALS: BP 115/59; PULSE 77; RESP 18; TEMP 36.1; O2SAT 100; BMI 27.4
--- NOTE | 2022-04-30 07:51 | ED.FEMALEGU ---
HPI - Female Genitourinary General Chief complaint: Urogenital-Female Stated complaint: post op t-7 /bladder or UTI t-2 Time Seen by Provider: 04/30/22 07:29 Source: patient Mode of arrival: Ambulatory History of Present Illness HPI Narrative: Patient is a 36-year-old female history of total hysterectomy secondary to cervical cancer at [facility] 7 days ago presents with 2 days of dysuria and frequent urination. She says she just does not feel like she is emptying her bladder all the way. She has no back pain no nausea vomiting no fevers no chest pain palpitations dizziness lightheadedness or syncope. She reports that she is on Lovenox shots. She says immediately post operative she did receive 1 blood transfusion but since then she says she is been doing well. She 4 months and has a 4-month-old baby. Related Data Home Medications Medication Instructions Recorded Confirmed ascorbate calcium (vitamin C) PO 11/02/21 02/23/22 cholecalciferol (vitamin D3) PO 11/02/21 02/23/22 ferrous sulfate [Iron (ferrous PO 11/02/21 02/23/22 sulfate)] prenat.vits,shalonda,[id number] 1 tab PO DAILY 11/02/21 03/10/22 Previous Rx's Medication Instructions Recorded oxycodone 5 mg tablet 5 mg PO Q4H PRN pain #7 tabs 03/15/22 nitrofurantoin 100 mg PO Q12H 5 days #10 caps 04/30/22 monohydrate/macrocrystals 100 mg capsule (Macrobid) phenazopyridine 100 mg tablet 100 mg PO TID PRN pain 6 doses #6 04/30/22 (Pyridium) tabs Allergies Allergy/AdvReac Type Severity Reaction Status Date / Time amoxicillin [AMOXICILLIN] Allergy Severe rash, Verified 04/30/22 07:34 throat swelling Influenza Virus Vaccines Allergy Severe diffuse Verified 04/30/22 07:34 skin rash, difficulty breathing. heavy metal Allergy Severe Diffuse Uncoded 04/30/22 07:34 rash, breathing difficulties Patient History Medical History (Updated 04/30/22 @ 08:14 by Isha Reich DO) Abnormal Pap smear of cervix (~2006) Allergic rhinitis Anemia (~2012) Anxiety COVID-19 virus infection (10/05/20) Depression Human papilloma virus (~2006) Hyperlipidemia LDL goal <100 Nevus Painful menstrual periods Palpitations Rosacea Skin rash UTI (urinary tract infection) (~2006) Weight gain, abnormal Family History Father Age: 63 Hypertension Hyperlipidemia Mother Uterine cancer Cancer Diabetes mellitus Sister Age: 35 Hyperlipidemia alcohol intake frequency: 0-2 drinks per day Substance Use Type: does not use Exam Initial Vital Signs Initial Vital Signs: Vital Signs Temperature 97.0 F L 04/30/22 07:35 Pulse Rate 77 04/30/22 07:35 Respiratory Rate 18 04/30/22 07:35 Blood Pressure 115/59 L 04/30/22 07:35 Pulse Oximetry 100 04/30/22 07:35 Oxygen Delivery Method 04/30/22 07:35 GENERAL: Alert pleasant 36-year-old female HEENT: Head atraumatic,EOMI, pupils reactive, face symmetric, moist mucous membranes CARDIOVASCULAR: Regular rate and rhythm without murmurs, rubs or gallops. RESPIRATORY: Breath sounds equal bilaterally, no wheezes rales or rhonchi. ABDOMEN: Soft, nontender no guarding no rebound incision site clean and dry Steri-Strips in place : No CVA tenderness EXTREMITIES: Normal range of motion, no clubbing or edema. Neurovascularly intact NEUROLOGICAL: Alert and oriented x4.Normal gait and speech. SKIN: Warm, dry, no laceration, no petechiae, no rashes or lesions. Course Vital Signs Vital signs: Vital Signs - 8 hr 04/30/22 07:35 Temperature 97.0 F L Pulse Rate 77 Respiratory Rate 18 Blood Pressure 115/59 L Pulse Oximetry 100 Oxygen Delivery Method Room Air MDM - Female Genitourinary Lab Data Labs: Urine Dip Bedside Urine Glucose Negative Bedside Urine Bilirubin - Negative Bedside Urine Ketone - Negative Urine Specific Robinson 1.020 Bedside Urine Occult Blood - Negative Bedside Urine pH 6.0 Bedside Urine Protein - Negative Bedside Urine Urobilinogen - Negative Bedside Urine Nitrite - Negative Bedside Urine Leukocytes - Negative Esterase MDM Narrative Medical decision making narrative: Patient is a 36-year-old female presenting with dysuria and urinary frequency. She is not tachycardic hypotensive or febrile no signs of sepsis. She 7 days postop from hysterectomy. UA POC urinalysis is completely negative. Concern for possible urinary retention bladder scan does show 25 mL. Pretty consistent with UTI old do a course of Macrobid and Pyridium to see if her symptoms improve. She really does not have any other concerning symptoms. Not hypotensive tachycardic having pain to suggest or warrant blood work or CT scan. At this time I do not see any need for further workup. However if symptoms worsen she definitely will need more. Discharge Plan Departure Patient Disposition: Home Clinical Impression: UTI (urinary tract infection) Instructions: DI for Urinary Tract Infection (UTI) Activity Restrictions/Additional Instructions: *You have been diagnosed with probable bladder infection *What to do: At this time her urine actually looks okay. However with recent history will give you 5 days of antibiotics. However if your symptoms worsen or change in any way you need to return back to the emergency department for further evaluation *Continue to take medications as directed Macrobid 100 mg twice a day for 5 days--> [facility] Pyridium 100 mg 3 times a day if needed for painful urination *Follow up with your primary care provider in 2-3 days or call [phone] *Return to ER if you should have increasing pain fever dizziness lightheadedness abdominal pain nausea vomiting or any new, worsening or concerning symptoms Prescriptions: New nitrofurantoin monohyd/m-cryst [Macrobid] 100 mg capsule 100 mg PO Q12H 5 Days Qty: 10 0RF Rx Instructions: must administer with a meal/food phenazopyridine [Pyridium] 100 mg tablet 100 mg PO TID PRN (Reason: pain) Qty: 6 0RF No Action prenat.vits,shalonda,[id number] Tablet 1 tab PO DAILY ferrous sulfate [Iron (ferrous sulfate)] PO cholecalciferol (vitamin D3) PO ascorbate calcium (vitamin C) PO oxycodone 5 mg tablet 5 mg PO Q4H PRN (Reason: pain) Qty: 7 0RF Referrals: Charline Manjarrez ARNP [Primary Care Provider] - Stand Alone Forms: Patient Portal/API
== END 2022-04-30 08:25 | disposition home or self-care (01) ==
PROVIDERS: Emergency Provider Emergency Medicine; Family Provider Family Medicine; PCP Nurse Practitioner
DX: N39.0 Urinary tract infection, site not specified (principal)
CPT/HCPCS: 51798; 81003; 99282

== ENCOUNTER → 2022-07-19 14:51 | Outpatient (CLI) | payer OTHER, MEDICAID, SELFPAY | PROVIDERS: Family Provider Family Medicine; PCP Nurse Practitioner; Referring Provider Nurse Practitioner; Visit Provider Nurse Practitioner | DX: R00.2 Palpitations (principal) | CPT/HCPCS: 93242 ==

== ENCOUNTER → 2022-12-10 16:28 | Outpatient (CLI) | payer OTHER, MEDICAID, SELFPAY ==
[2022-12-13 11:28] LABS: Candida species Negative (Negative); Gardnerella vaginalis Negative (Negative); Trichomoas vaginalis Negative (Negative)
== END ==
PROVIDERS: Family Provider Family Medicine; PCP Nurse Practitioner; Visit Provider Obstetrics & Gynecology
DX: N89.8 Other specified noninflammatory disorders of vagina (principal)
CPT/HCPCS: 87480; 87510; 87660

== ENCOUNTER 2023-04-20 15:04 | Emergency (ER) | payer OTHER, MEDICAID, SELFPAY ==
[2023-04-20 15:06] VITALS: BP 121/71; PULSE 81; RESP 18; TEMP 36.8; O2SAT 100; BMI 31.2
--- NOTE | 2023-04-20 18:00 | PC.NURSE ---
Pt reports dark maulik in urine today. Brought it in for staff to see. Denies any pain/discomfort or urinary changes.
--- NOTE | 2023-04-20 18:50 | ED_ITS ---
HPI - Female Genitourinary <Rhona Palacios PA-C - Last Filed: 04/20/23 18:56> General Chief complaint: Urogenital-Female Stated complaint: tissue in urine, previou cancer pt. Time Seen by Provider: 04/20/23 17:27 Source: patient Mode of arrival: Ambulatory History of Present Illness HPI Narrative: 37-year-old female with past medical history cervical cancer, status post hysterectomy presents to the ED with a piece of tissue that she noticed in the toilet after she urinated this morning. Patient brings with her a small piece of dark red/brown tissue. Patient denies any discomfort with urination, fever, chills, abdominal pain, back pain, nausea, vomiting. Patient sees obgyn Dr. Steinberg. Related Data Home Medications Medication Instructions Recorded Confirmed ascorbate calcium (vitamin C) PO 11/02/21 03/10/23 cholecalciferol (vitamin D3) PO 11/02/21 03/10/23 ferrous sulfate [Iron (ferrous PO 11/02/21 03/10/23 sulfate)] prenat.vits,shalonda,[id number] 1 tab PO DAILY 11/02/21 03/10/23 lactobacillus combination no.9 4 PO 06/01/22 03/10/23 billion cell capsule (Adult 50 Plus Probiotic) Allergies Allergy/AdvReac Type Severity Reaction Status Date / Time amoxicillin [AMOXICILLIN] Allergy Severe rash, Verified 03/10/23 11:36 throat swelling Influenza Virus Vaccines Allergy Severe diffuse Verified 03/10/23 11:36 skin rash, difficulty breathing. heavy metal Allergy Severe Diffuse Uncoded 03/10/23 11:36 rash, breathing difficulties Review of Systems <Rhona Palacios PA-C - Last Filed: 04/20/23 18:56> Constitutional Constitutional: Denies chills, Denies fatigue, Denies fever(s), Denies frequent falls, Denies lethargy and Denies weakness Eyes Eyes: Denies change in vision, Denies eye discharge, Denies irritation and Denies loss of vision ENT Ears, Nose, Mouth, and Throat: Denies change in voice, Denies dizziness, Denies neck pain, Denies sore throat and Denies throat swelling Cardiovascular Cardiovascular: Denies chest pain, Denies irregular heart rhythm, Denies lightheadedness, Denies palpitations, Denies dyspnea, Denies dyspnea on exertion and Denies orthopnea Respiratory Respiratory: Denies cough, Denies dyspnea, Denies dyspnea on exertion and Denies wheezing Gastrointestinal Gastrointestinal: Denies abdominal pain, Denies change in bowel habits, Denies diarrhea, Denies nausea and Denies vomiting Genitourinary Comments: Tissue in urine Musculoskeletal Musculoskeletal: Denies neck pain and Denies numbness Integumentary/Breasts Skin/Breast: Denies pruritus, Denies erythema, Denies rash and Denies wounds Neurologic Neurologic: Denies behavioral changes, Denies confusion, Denies dizziness, Denies frequent falls, Denies loss of vision, Denies numbness and Denies weakness Psychiatric Psychiatric: Denies anxiety, Denies behavioral changes, Denies confusion, Denies depression, Denies homicidal ideation and Denies suicidal ideation Endocrine Endocrine: Denies fatigue, Denies flushing and Denies palpitations Hematologic/Lymphatic Hematologic/Lymphatic: Denies easy bruising Allergic/Immunologic Allergic/Immunologic: Denies urticaria, Denies throat swelling and Denies wheezing Patient History <Rhona Palacios PA-C - Last Filed: 04/20/23 18:56> Medical History COVID-19 virus infection (10/05/20) Nevus Hyperlipidemia LDL goal <100 Allergic rhinitis Depression Weight gain, abnormal Anxiety Palpitations Skin rash Rosacea Anemia (~2012) Painful menstrual periods Human papilloma virus (~2006) Abnormal Pap smear of cervix (~2006) UTI (urinary tract infection) (~2006) Surgical History Status post hysterectomy Family History Father Age: 64 Hypertension Hyperlipidemia Mother Uterine cancer Cancer Diabetes mellitus Sister Age: 36 Hyperlipidemia alcohol intake frequency: 0-2 drinks per day Substance Use Type: does not use Exam <Rhona Palacios PA-C - Last Filed: 04/20/23 18:56> Narrative Exam Narrative: Const General:?cooperative, healthy appearing and comfortable [facility] Head:?normal to inspection Ears:?hearing grossly normal bilaterally Nose:?external nose normal Face and sinus:?normal facial exam and sinuses nontender Mouth:?oral mucosae normal Throat:?posterior oropharynx normal Eyes General:?appearance normal, both eyes and all related structures Neck Neck:?normal visual inspection and no lymphadenopathy noted Resp Effort & Inspection:?normal respiratory effort Auscultation:?clear to auscultation bilaterally Cardio Rate:?regular rate Rhythm:?regular rhythm Neuro General:?patient alert, patient awake and patient oriented x3 Initial Vital Signs Initial Vital Signs: Vital Signs Temperature 98.3 F 04/20/23 15:06 Pulse Rate 81 04/20/23 15:06 Respiratory Rate 18 04/20/23 15:06 Blood Pressure 121/71 04/20/23 15:06 Pulse Oximetry 100 04/20/23 15:06 Oxygen Delivery Method Room Air 04/20/23 15:06 <Isha Reich DO - Last Filed: 04/25/23 07:43> Initial Vital Signs Initial Vital Signs: Vital Signs Temperature 98.3 F 04/20/23 15:06 Pulse Rate 81 04/20/23 15:06 Respiratory Rate 18 04/20/23 15:06 Blood Pressure 121/71 04/20/23 15:06 Pulse Oximetry 100 04/20/23 15:06 Oxygen Delivery Method Room Air 04/20/23 15:06 Course <Rhona Palacios PA-C - Last Filed: 04/20/23 18:56> Vital Signs Vital signs: Vital Signs - 8 hr 04/20/23 15:06 Temperature 98.3 F Pulse Rate 81 Respiratory Rate 18 Blood Pressure 121/71 Pulse Oximetry 100 Oxygen Delivery Method Room Air <Isha Reich DO - Last Filed: 04/25/23 07:43> Vital Signs Vital signs: Vital Signs - 8 hr 04/20/23 15:06 Temperature 98.3 F Pulse Rate 81 Respiratory Rate 18 Blood Pressure 121/71 Pulse Oximetry 100 Oxygen Delivery Method Room Air MDM - Female Genitourinary <UYEN Mcclure Last Filed: 04/20/23 18:56> Lab Data Labs: Urine Dip Bedside Urine Glucose Negative Bedside Urine Bilirubin - Negative Bedside Urine Ketone - Negative Urine Specific [place] 1.010 Bedside Urine Occult Blood - Negative Bedside Urine pH 6.0 Bedside Urine Protein - Negative Bedside Urine Urobilinogen - Negative Bedside Urine Nitrite - Negative Bedside Urine Leukocytes - Negative Esterase MDM Narrative Medical decision making narrative: 37-year-old female with past medical history cervical cancer, status post hysterectomy presents to the ED with a piece of tissue that she noticed in the toilet after she urinated this morning. Urine POC was negative with no signs of blood, infection, crystals. Discussed with patient that the tissue could be of vaginal or urethral origin. Recommend follow-up with Dr. Steinberg as soon as possible for further evaluation. ED return precautions discussed with patient. Patient verbalized understanding. Medical records reviewed: Yes <Isha Reich DO - Last Filed: 04/25/23 07:43> Lab Data Labs: Urine Dip Bedside Urine Glucose Negative Bedside Urine Bilirubin - Negative Bedside Urine Ketone - Negative Urine Specific [place] 1.010 Bedside Urine Occult Blood - Negative Bedside Urine pH 6.0 Bedside Urine Protein - Negative Bedside Urine Urobilinogen - Negative Bedside Urine Nitrite - Negative Bedside Urine Leukocytes - Negative Esterase Discharge Plan Departure Patient Disposition: Home Clinical Impression: Urine abnormality Activity Restrictions/Additional Instructions: You were evaluated in the ED today for a abnormal tissue found after urination in the toilet. The piece of tissue could be of vaginal or urethral origin, however your urine was normal. Your urine did not show any evidence of blood or infection or crystals. Please follow-up with Dr. Steinberg as soon as possible for further evaluation. Return to the ED if you have worsening symptoms, pain with urination, persistent vomiting, fever, chills. Prescriptions: No Action prenat.vits,shalonda,[id number] Tablet 1 tab PO DAILY ferrous sulfate [Iron (ferrous sulfate)] PO cholecalciferol (vitamin D3) PO ascorbate calcium (vitamin C) PO Adult 50 Plus Probiotic 4 billion cell capsule PO Referrals: Charline Manjarrez ARNP [Primary Care Provider] - Stand Alone Forms: Patient Portal/API ED Sign-out <Isha Reich DO - Last Filed: 04/25/23 07:43> Cosign ED Attending Cosradhaature Attestation: I was available for consultation.
== END 2023-04-20 18:21 | disposition home or self-care (01) ==
PROVIDERS: Emergency Provider Student in an Organized Health Care Education/Training Program; Family Provider Family Medicine; PCP Nurse Practitioner
DX: R82.90 Unspecified abnormal findings in urine (principal)
CPT/HCPCS: 81003; 99281; 99282

== ENCOUNTER → 2023-06-30 10:16 | Outpatient (CLI) | payer OTHER, MEDICAID, SELFPAY ==
[2023-07-01 14:45] LABS: Candida species Negative (Negative); Gardnerella vaginalis Negative (Negative); Trichomoas vaginalis Negative (Negative)
== END ==
PROVIDERS: Family Provider Family Medicine; PCP Nurse Practitioner; Visit Provider Obstetrics & Gynecology
DX: N89.8 Other specified noninflammatory disorders of vagina (principal)
CPT/HCPCS: 87480; 87510; 87660

== ENCOUNTER → 2023-07-19 09:01 | Outpatient (CLI) | payer OTHER, MEDICAID, SELFPAY ==
[2023-07-19 11:19] LABS: HEMOLYSIS < 15 (0-50); Iron 126 ug/dL (37-170)
[2023-07-19 11:31] LABS: Percent Iron Saturation 33 % (15-50); Total Iron Binding Capacity 387 ug/dL (265-497); Transferrin 322 mg/dL (206-381)
[2023-07-19 12:09] LABS: Vitamin B12 657 pg/mL (239-931)
== END ==
LOC: LAB 09:01
PROVIDERS: Family Provider Family Medicine; PCP Nurse Practitioner; Referring Provider Nurse Practitioner; Visit Provider Nurse Practitioner
DX: D50.9 Iron deficiency anemia, unspecified (principal)
CPT/HCPCS: 36415; 82607; 83540; 83550

== ENCOUNTER → 2023-07-25 16:43 | Outpatient (CLI) | payer OTHER, MEDICAID, SELFPAY ==
[2023-07-25 17:29] LABS: Appearance Urine UA CLEAR; Bilirubin Urine UA NEGATIVE (NEGATIVE); Color Urine UA YELLOW; Glucose Urine UA NEGATIVE (Negative); Ketones Urine UA NEGATIVE (NEGATIVE); Leukocyte Esterase Urine UA NEGATIVE (NEGATIVE); Nitrite Urine UA NEGATIVE (Negative); Occult Blood Urine UA NEGATIVE (Negative); Protein Urine UA NEGATIVE (Negative); Specific Gravity Urine UA <=1.005 (1.000-1.035); Urobilinogen Urine UA 0.2 E.U./dL (0.2); pH Urine UA 6.5 (4.5-8.0)
[2023-07-25 17:43] LABS: Bacteria Urine Occasional (0-1); Culture Indicated Urine Cult Not Indicated; RBC Urine 0-1/HPF (0-5/HPF); Squamous Epithelial Cell Urine 0-1 /HPF (0-5/HPF); Urine Volume 10mL (spun); WBC Urine 0-1/HPF (0-5/HPF)
[2023-07-25 17:58] LABS: Creatinine Urine Random 23.5 mg/dL
[2023-07-25 18:02] LABS: Microalbumin Urine Random < 0.6 mg/dL (0-1.6)
== END ==
PROVIDERS: Family Provider Family Medicine; PCP Nurse Practitioner; Referring Provider Nurse Practitioner; Visit Provider Nurse Practitioner
DX: Z00.00 Encounter for general adult medical examination without abnormal findings (principal); R31.9 Hematuria, unspecified
CPT/HCPCS: 36415; 81001; 82043; 82570

== ENCOUNTER → 2024-09-13 09:22 | Outpatient (CLI) | payer OTHER, SELFPAY ==
[2024-09-13 10:45] LABS: HEMOLYSIS < 15 (0-50); Hematocrit 38.2 % (36-46); Iron 70 ug/dL (37-170); Mean Corpuscular HGB Conc 34.2 % (30-36); Mean Corpuscular Hemoglobin 30.7 PG (26-34); Mean Corpuscular Volume 89.9 fL (80-100); Platelet Count 358 X10^3/uL (150-400); Red Blood Cell Count 4.25 X10^6/uL (4.0-5.2); Red Cell Distribution Width 13.7 % (11.6-14.8); White Blood Cell Count 9.2 X10^3/uL (4.5-11.0)
[2024-09-13 10:46] LABS: Alanine Aminotransferase 22 IU/L (<35); Albumin 4.6 g/dL (3.5-5.0); Albumin Globulin Ratio 1.8 (1.0-2.8); Alkaline Phosphatase 54 U/L (38-126); Aspartate Aminotransferase 26 IU/L (14-36); BUN Creatinine Ratio 19.4 (6-22); Bilirubin Total 0.3 mg/dL (0.2-1.3); Blood Urea Nitrogen 12 mg/dL (7-17); Calcium 9.3 mg/dL (8.4-10.2); Carbon Dioxide 25 mmol/L (22-32); Chloride 103 mmol/L (98-107); Cholesterol 193 mg/dL (140-199); Estimated Glomerular Filt Rate > 60 mL/min (>60); Globulin 2.6 g/dL (1.7-4.1); Glucose 90 mg/dL (70-99); HDL Cholesterol 48 mg/dL (40-60); HEMOLYSIS 18 (0-50); LDL Cholesterol Calculated 127 mg/dL (<100); Potassium 4.4 mmol/L (3.4-5.1); Sodium 137 mmol/L (137-145); Total Protein 7.2 g/dL (6.3-8.2); Triglycerides 88 mg/dL (35-150)
[2024-09-13 10:55] LABS: Percent Iron Saturation 18 % (15-50); Total Iron Binding Capacity 389 ug/dL (265-497); Transferrin 337 mg/dL (206-381)
[2024-09-13 11:00] LABS: Follicle Stimulating Hormone 6.02 mIU/mL; Vitamin D 25 Hydroxy (D3) 34.7 ng/mL (30.0-100.0)
[2024-09-13 11:01] LABS: Free T4, Direct Thyroxine 1.11 ng/dL (0.78-2.19)
[2024-09-13 11:07] LABS: Hemoglobin A1C% w Est Avg Glu 5.1 % (4.0-6.0)
[2024-09-13 11:15] LABS: Thyroid Stimulating Hormone 1.26 uIU/mL (0.47-4.68)
[2024-09-13 11:16] LABS: Estradiol, Total 67.5 pg/mL
[2024-09-13 11:18] LABS: Ferritin 22 ng/mL (6-137)
[2024-09-13 11:34] LABS: Vitamin B12 515 pg/mL (239-931)
== END ==
PROVIDERS: Family Provider Family Medicine; PCP Registered Nurse Diabetes Educator; Referring Provider Registered Nurse Diabetes Educator; Visit Provider Registered Nurse Diabetes Educator
DX: E78.5 Hyperlipidemia, unspecified (principal); D50.9 Iron deficiency anemia, unspecified; R00.2 Palpitations; R53.83 Other fatigue; R63.5 Abnormal weight gain; R68.82 Decreased libido; N89.8 Other specified noninflammatory disorders of vagina
CPT/HCPCS: 36415; 80053; 80061; 82306; 82607; 82670; 82728; 83001; 83036; 83540; 83550; 84439; 84443; 85027

== ENCOUNTER 2024-09-16 22:17 | Emergency (ER) | payer OTHER, SELFPAY ==
[2024-09-16 22:21] VITALS: BP 142/66; PULSE 62; RESP 20; TEMP 36.4; O2SAT 100; BMI 32.9
--- NOTE | 2024-09-17 | DI.RAD.S_ITS ---
PROCEDURE: XR CHEST 1V INDICATIONS: Chest Pain TECHNIQUE: One view of the chest was acquired. COMPARISON: [facility], CR, XR CHEST 1V, 01/05/2021, 15:19. [facility], CR, XR CHEST 1V, 10/05/2020, 22:21. FINDINGS: Surgical changes and devices: None. Lungs and pleura: Lungs are clear. No pleural effusions or pneumothorax. Mediastinum: Mediastinal contours appear normal. Heart size is normal. Bones and chest wall: No suspicious bony lesions. Overlying soft tissues appear unremarkable. IMPRESSION: No acute cardiopulmonary abnormality is seen. Dictated by: Jimi Armendariz M.D. on 09/17/2024 at 0:36 Approved by: Jimi Armendariz M.D. on 09/17/2024 at 0:37
--- NOTE | 2024-09-17 00:04 | PC.NURSE ---
Imaging at bedside
--- NOTE | 2024-09-17 00:04 | EKG_ITS ---
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
[2024-09-17 00:06] VITALS: BP 122/65; PULSE 60; RESP 16; O2SAT 100
[2024-09-17 00:18] LABS: Add Manual Diff / Slide Review NO; Basophils Absolute Auto 100 /uL (0-100); Basophils Percent Auto 0.7 % (0-2); Eosinophils Absolute Auto 400 /uL (0-450); Eosinophils Percent Auto 3.3 % (2-4); Hematocrit 36.3 % (36-46); Hemoglobin 12.4 g/dL (12.0-16.0); Lymphocytes Absolute Auto 3800 /uL (1100-4500); Lymphocytes Percent Auto 35.9 % (25-40); Mean Corpuscular HGB Conc 34.2 % (30-36); Mean Corpuscular Hemoglobin 30.6 PG (26-34); Mean Corpuscular Volume 89.6 fL (80-100); Monocytes Absolute Auto 800 /uL (0-900); Monocytes Percent Auto 7.7 % (3-14); Neutrophils Absolute Auto 5500 /uL (1500-7000); Neutrophils Percent Auto 52.4 % (50-75); Platelet Count 351 X10^3/uL (150-400); Red Blood Cell Count 4.06 X10^6/uL (4.0-5.2); Red Cell Distribution Width 13.7 % (11.6-14.8); White Blood Cell Count 10.6 X10^3/uL (4.5-11.0)
[2024-09-17 00:27] LABS: INR 0.9 (0.9-1.3); Prothrombin Time 10.1 SECONDS (9.4-12.5)
[2024-09-17 00:29] LABS: PTT Partial Thromboplastin Tim 32 SECONDS (25.1-36.5)
[2024-09-17 00:30] VITALS: PULSE 60; RESP 20; O2SAT 99
[2024-09-17 00:31] VITALS: BP 101/56; PULSE 57; RESP 16; O2SAT 100
[2024-09-17 00:31] LABS: Alanine Aminotransferase 19 IU/L (<35); Albumin 4.6 g/dL (3.5-5.0); Albumin Globulin Ratio 1.5 (1.0-2.8); Alkaline Phosphatase 56 U/L (38-126); Aspartate Aminotransferase 23 IU/L (14-36); BUN Creatinine Ratio 16.7 (6-22); Bilirubin Total 0.1 mg/dL (0.2-1.3); Blood Urea Nitrogen 11 mg/dL (7-17); Calcium 9.5 mg/dL (8.4-10.2); Carbon Dioxide 24 mmol/L (22-32); Chloride 104 mmol/L (98-107); Creatine Kinase 69 U/L (30-135); Estimated Glomerular Filt Rate > 60 mL/min (>60); Glucose 95 mg/dL (70-99); HEMOLYSIS < 15 (0-50); Lipase 44 U/L (23-300); Sodium 138 mmol/L (137-145); Total Protein 7.6 g/dL (6.3-8.2)
[2024-09-17 00:43] LABS: NT-proBNP (BNP-Adult 18+) 24 pg/mL (<125); Troponin I < 0.012 ng/mL (0.01-0.034)
[2024-09-17 01:00] VITALS: BP 106/61; PULSE 58; RESP 18; O2SAT 99
--- NOTE | 2024-09-17 01:00 | ED.EXTPRO ---
HPI - Extremity Problem General Chief complaint: Extremity Problem,Nontraumatic Stated complaint: Pain left leg and arm near chest Time Seen by Provider: 09/16/24 23:47 Source: patient Mode of arrival: Ambulatory History of Present Illness HPI Narrative: 38-year-old female history of cervical cancer status post hysterectomy in 2021 has been having intermittent left thigh pain and left foot pain along with left arm pain intermittently with no active chest pain but at times feels heavy per patient. He is a nonsmoker no history of DVT PE no long-distance travel no trauma to the area no other complaints at this time. Patient was concerned that this could be a sign of blood clot and wanted to be evaluated but otherwise is asymptomatic now. Other than what is stated 14 point review of system is negative. Related Data Home Medications Medication Instructions Recorded Confirmed cholecalciferol (vitamin D3) PO 11/02/21 07/31/24 lactobacillus combination no.9 4 PO 06/01/22 05/21/24 billion cell capsule (Adult 50 Plus Probiotic) Allergies Allergy/AdvReac Type Severity Reaction Status Date / Time amoxicillin [AMOXICILLIN] Allergy Severe rash, Verified 07/31/24 12:55 throat swelling Influenza Virus Vaccines Allergy Severe diffuse Verified 07/31/24 12:55 skin rash, difficulty breathing. heavy metal Allergy Severe Diffuse Uncoded 07/31/24 12:55 rash, breathing difficulties Review of Systems Review of Systems ROS Unobtainable: All systems reviewed & are unremarkable except as noted in HPI and below Patient History Medical History Weight gain, abnormal Iron deficiency anemia History of skin cancer COVID-19 virus infection (10/05/20) Nevus Hyperlipidemia LDL goal <100 Allergic rhinitis Depression Anxiety Palpitations Skin rash Rosacea Anemia (~2012) Painful menstrual periods Human papilloma virus (~2006) Abnormal Pap smear of cervix (~2006) UTI (urinary tract infection) (~2006) Family History Father Age: 66 Hypertension Hyperlipidemia Mother Uterine cancer Cancer Diabetes mellitus Sister Age: 38 Hyperlipidemia Social History household members: spouse and children alcohol intake: current Smoking Status: Never smoker alcohol intake frequency: 0-2 drinks per day Exam Narrative Exam Narrative: GENERAL: [38] year old patient appears stated age. Well-developed patient, in mild distress. HEAD: Atraumatic. Normocephalic. EYES: Pupils equal round and reactive. Extraocular motions intact. No scleral icterus. No injection or drainage. ENT: Nose without bleeding, purulent drainage. Throat without erythema, tonsillar hypertrophy or exudate. Airway patent. NECK: Trachea midline. Non tender CARDIOVASCULAR: Regular rate and rhythm without murmurs, gallops, or rubs. RESPIRATORY: Clear to auscultation. Breath sounds equal bilaterally. No wheezes, rales, or rhonchi. GASTROINTESTINAL: Abdomen soft, non-tender, nondistended. EXTREMITIES: No edema or joint tenderness. Equal and symmetrical calf with no TTP motor/sensory intact +2DP +2PT cap refill <2secs BACK: Nontender without deformity or crepitance. No flank tenderness. NEURO: AOx3. SKIN: No rash or erythema of visible areas Initial Vital Signs Initial Vital Signs: Vital Signs Temperature 97.5 F L 09/16/24 22:21 Pulse Rate 62 09/16/24 22:21 Respiratory Rate 20 09/16/24 22:21 Blood Pressure 142/66 H 09/16/24 22:21 Pulse Oximetry 100 09/16/24 22:21 Oxygen Delivery Method Room Air 09/16/24 22:21 Scores HEART Score Heart Score history: Slightly Suspicious Heart Score EKG: Normal Heart Score Age: < 45 years old Heart Score risk factors: No known risk factors Heart Score troponin: < or = to normal limit Heart Score Total: 0 Course Orders Ordered: ED Orders 09/17/24 00:00 XR chest 1V Stat EKG-12 Lead Stat 09/17/24 00:01 Complete Blood Count AUTO DIFF Stat Comprehensive Metabolic Panel Stat Lipase Stat Magnesium Stat NT-proBNP (BNP-Adult 18+) Stat PTT Partial Thromboplastin Luis Stat Prothrombin Time INR Stat Troponin & CK Cardiac Panel Stat Vital Signs Vital signs: Vital Signs - 8 hr 09/16/24 22:21 09/17/24 00:06 Temperature 97.5 F L Pulse Rate 62 60 Respiratory Rate 20 16 Blood Pressure 142/66 H 122/65 Pulse Oximetry 100 100 Oxygen Delivery Method Room Air Room Air MDM - Extremity (Nontraumatic) Lab Data 09/17/24 00:01 09/17/24 00:01 Labs: Lab Results 09/17/24 Range/Units 00:01 WBC 10.6 (4.5-11.0) X10^3/uL RBC 4.06 (4.0-5.2) X10^6/uL Hgb 12.4 (12.0-16.0) g/dL Hct 36.3 (36-46) % MCV 89.6 (80-100) fL MCH 30.6 (26-34) PG MCHC 34.2 (30-36) % RDW 13.7 (11.6-14.8) % Plt Count 351 (150-400) X10^3/uL Neut % (Auto) 52.4 (50-75) % Lymph % (Auto) 35.9 (25-40) % Johnston % (Auto) 7.7 (3-14) % Eos % (Auto) 3.3 (2-4) % Baso % (Auto) 0.7 (0-2) % Neut # (Auto) 5500 (8361-3044) /uL Lymph # (Auto) 3800 (0584-8753) /uL Johnston # (Auto) 800 (0-900) /uL Eos # (Auto) 400 (0-450) /uL Baso # (Auto) 100 (0-100) /uL PT 10.1 (9.4-12.5) SECONDS INR 0.9 (0.9-1.3) APTT 32 (25.1-36.5) SECONDS Sodium 138 (137-145) mmol/L Potassium 4.0 (3.4-5.1) mmol/L Chloride 104 (98-107) mmol/L Carbon Dioxide 24 (22-32) mmol/L BUN 11 (7-17) mg/dL Creatinine 0.66 (0.52-1.04) mg/dL Estimated GFR > 60 (>60) mL/min BUN/Creatinine Ratio 16.7 (6-22) Glucose 95 (70-99) mg/dL Calcium 9.5 (8.4-10.2) mg/dL Magnesium 2.0 (1.6-2.3) mg/dL Total Bilirubin 0.1 L (0.2-1.3) mg/dL AST 23 (14-36) IU/L ALT 19 (<35) IU/L Alkaline Phosphatase 56 (38-126) U/L Total Creatine Kinase 69 (30-135) U/L Troponin I < 0.012 (0.01-0.034) ng/mL NT-Pro-B Natriuret Pep 24 (<125) pg/mL Total Protein 7.6 (6.3-8.2) g/dL Albumin 4.6 (3.5-5.0) g/dL Globulin 3.0 (1.7-4.1) g/dL Albumin/Globulin Ratio 1.5 (1.0-2.8) Lipase 44 (23-300) U/L ECG Data Interpretation: Sinus Bradycardia HR 58 [place] 136 QRS [address]-t wave change No previous EKG to compare against MDM Narrative Medical decision making narrative: All lab work, vital signs, nurse triage note, medication list, previous ER visits, and chest x-ray all reviewed. Heart score is 0. D-dimer was negative and troponin was normal and chest x-ray did not show any acute process. Differential diagnosis includes PE anxiety neuropathic pain sciatica piriformis syndrome costochondritis. Patient has follow up appointment with PCP coming up and to return with new or worsening symptoms. Discharge Plan Departure Patient Disposition: Home Clinical Impression: Left leg pain Chest pain Qualifiers: Chest pain type: chest pain on breathing Qualified Code(s): R07.1 - Chest pain on breathing Instructions: DI for Leg Pain Activity Restrictions/Additional Instructions: Return with new or worsening. Follow up with upcoming PCP appointment. Prescriptions: No Action cholecalciferol (vitamin D3) PO Adult 50 Plus Probiotic 4 billion cell capsule PO Referrals: Devon Alvarenga ARNP [Primary Care Provider] - Stand Alone Forms: Patient Portal/API/Survey
[2024-09-17 01:29] LABS: D Dimer 220 ng/ml (<500)
[2024-09-17 01:30] VITALS: BP 110/61; PULSE 61; RESP 20; O2SAT 99
== END 2024-09-17 01:53 | disposition home or self-care (01) ==
PROVIDERS: Emergency Provider Family Medicine; Family Provider Family Medicine; PCP Registered Nurse Diabetes Educator
DX: M79.652 Pain in left thigh (principal); M79.602 Pain in left arm; R07.1 Chest pain on breathing
CPT/HCPCS: 36415; 71045; 80053; 82550; 83690; 83735; 83880; 84484; 85025; 85379; 85610; 85730; 93005; 99283; 99284